=== PATIENT | female | born 1940 | race Caucasian/White ===

== ENCOUNTER 2017-04-06 14:03 | Inpatient (IN) | payer MEDICARE, OTHER ==
[2017-04-06] MEDS ORDERED: Haloperidol Lactate 5 mg/mL 1mL Vial IM ONE (14:12)
[2017-04-06] MEDS ORDERED: Haloperidol Lactate 5 mg/mL 1mL Vial IVP ONE (14:12)
[2017-04-06] MEDS ORDERED: Haloperidol Lactate 5 mg/mL 1mL Vial ONE (14:13)
--- NOTE | 2017-04-06 14:23 | ED Physician Chart ---
ED Chief Complaint/HPI - Patient Information Date Seen:: 04/06/17 Time Seen:: 14:00 Chief Complaint:: agitation History of Present Illness:: onset x 2 days of agitation and aggressive behavior; no report of SIs, H/As, neck pain, C/P, SOB, Abd Pain, A/N/V/D/C, fever, chills, or urinary s/s Historian:: Patient, EMS Review:: Nurse's Note Reviewed, EMS run form Reviewed ED Review of Systems - Review of Systems General/Constitutional: No fever, No chills, No weight loss, No weakness, No diaphoresis, No edema, No loss of appetite Skin: No skin lesions, No rash, No bruising Head: No headache, No light-headedness Eyes: No loss of vision, No pain, No diplopia ENT: No earache, No nasal drainage, No sore throat, No tinnitus Neck: No neck pain, No swelling, No thyromegaly, No stiffness, No mass noted Cardio Vascular: No chest pain, No palpitations, No PND, No orthopnea, No edema Pulmonary: No SOB, No cough, No sputum, No wheezing GI: No nausea, No vomiting, No diarrhea, No pain, No melena, No hematochezia, No constipation, No hematemesis G/U: No dysuria, No frequency, No hematuria Musculoskeletal: No bone or joint pain, No back pain, No muscle pain Endocrine: No polyuria, No polydipsia Psychiatric: Prior psych history, Depression, Anxiety, No suicidal ideation, No homicidal ideation, No auditory hallucination, No visual hallucination Hematopoietic: No bruising, No lymphadenopathy Allergic/Immuno: No urticaria, No angioedema Neurological: No syncope, No focal symptoms, No weakness, No paresthesia, No headache, No seizure, No dizziness, No confusion, No vertigo ED Past Medical History - Past Medical History Obtainable: Yes Past Medical History: HTN, Dementia Family History: HTN Social History: Non Smoker, No Alcohol, No Drug Use, Single, Care Facility Surgical History: None Psychiatricy History: Depression, Bipolar, Dementia Medication: Reviewed Family Medical History - Family Member Mother History Unknown: Yes ED Physical Exam - Physical Examination General/Constitutional: Awake, Well-developed, well-nourished, Alert, No distress, GCS 15, Non-toxic appearing, Ambulatory Head: Atraumatic Eyes: Lids, conjuctiva normal, PERRL, EOMI Skin: Nl inspection, No rash, No skin lesions, No ecchymosis, Well hydrated, No lymphadenopathy ENMT: External ears, nose nl, TM canals nl, Nasal exam nl, Lips, teeth, gums nl , Oropharynx nl, Tonsils nl Neck: Nontender, Full ROM w/o pain, No JVD, No nuchal rigidity, No bruit, No mass, No stridor Respiratory: Nl effort/Exclusion, Clear to Auscultation, No Wheeze/Rhonchi/Rales Cardio Vascular: RRR, No murmur, gallop, rubs, NL S1 S2, Carotid/Femoral/Distal pulses equal bilaterally GI: No tenderness/rebounding/guarding, No organomegaly, No hernia, Normal BS's, Nondistended, No mass/bruits, No McBurney tenderness : No CVA tenderness Extremities: No tenderness or effusion, Full ROM, normal strength in all extremities, No edema, Normal digits & nails Neuro/Psych: Alert/oriented, DTR's symmetric, Normal sensory exam, Normal motor strength, Judgement/insight normal, Mood normal, Normal gait, No focal deficits Other Neuro/Psych comments:: + Psychomotor Agitation Misc: Normal back, No paraspinal tenderness ED Labs/Radiology/EKG Results - EKG Interpretations EKG Time:: 14:30 Rate & Rhythm: 121; ST Comments:: non-specific st-t changes ED Septic Shock - . Is Septic Shock (SBP<90, OR Lactate>4 mmol\L) present?: No ED Reassessment (Disposition) - Reassessment Reassessment Condition:: Improved - Diagnosis Diagnosis:: Psychomotor Agitation; Bipolar Disorder; Manic-Depression - Aftercare/Follow up Instructions Aftercare/Follow-Up Instructions:: Counseled pt regarding lab results/diagnosis & need follow up, Counseled pt & family regarding lab results/diagnosis & need follow up - Patient Disposition Discharge/Transfer:: Acute Care w/in this hosp Admitted to:: [facility] Condition at Disposition:: Stable, Improved ED Discharge Plan - Patient Disposition Admit/Discharge/Transfer: Acute Care w/in this hosp Condition at Disposition: Unchanged
[2017-04-06 14:43] LABS: % BASOPHILS 4.5 % (0.0-2.0); % EOSINOPHILS 2.4 % (0.0-5.0); % LYMPHOCYTES 16.7 % (20.0-50.0); % MONOCYTES 10.8 % (2.0-10.0); % NEUTROPHILS 65.6 % (40.0-80.0); HEMATOCRIT 43.7 % (41.0-60); HEMOGLOBIN 14.6 gm/dL (12-16); MEAN CELL VOLUME 93.8 fl (81-100); MEAN CORPUSCULAR HEMOGLOBIN 31.3 pg (27.0-31.0); MEAN CORPUSCULAR HGB CONC 33.4 pg (28.0-36.0); MEAN PLATELET VOLUME 7.5 fl; PLATELET COUNT 147 Th/cmm (150-400); RED BLOOD COUNT 4.66 Mil/cmm (3.80-5.20); RED CELL DISTRIBUTION WIDTH 14.1 % (11.5-20.0)
[2017-04-06 14:53] LABS: ACETAMINOPHEN < 10.0 ug/mL (10.0-30.0); ALB/GLOB RATIO 1.5 (1.0-1.8); ALKALINE PHOSPHATASE 123 U/L (34-104); ANION GAP 9.8 (7.0-16.0); BILIRUBIN,TOTAL 1.4 mg/dL (0.3-1.0); BUN - UREA NITROGEN 21 mg/dL (7-25); CARBON DIOXIDE 27.9 mEq/L (21.0-31.0); CHLORIDE 109 mEq/L (98-107); CHOLESTEROL 167 mg/dL (<200); GLUCOSE 82 mg/dL (70-105); POTASSIUM SERUM 3.7 mEq/L (3.5-5.1); SGOT 33 U/L (13-39); SGPT/ALT 29 U/L (7-52); SODIUM SERUM 143 mEq/L (136-145); TRIGLYCERIDES 98 mg/dL (<150)
[2017-04-06 18:31] VITALS: BP 108/54
[2017-04-07] MEDS: Aspirin 81mg Chewable Tab PO SCH (09:15)
[2017-04-08] MEDS: Aspirin 81mg Chewable Tab PO SCH (09:22)
--- NOTE | 2017-04-08 10:04 | Psychosocial Evaluation ---
DATE OF SERVICE: 04/06/2017 IDENTIFYING INFORMATION: The patient's age 77. SEX: Female. PHYSICIAN: Shana Husain M.D. CHIEF COMPLAINT: Agitation and confusion. HISTORY OF PRESENT ILLNESS: The patient was admitted to the hospital because of increased agitation and irritability as well as confusion. The patient also has been actively hallucinating and restless and have been talking to herself. The patient also has been aggressive with the staff and has not been able to follow any of staff directions. Chart reviewed and patient interviewed. The patient has been extremely irritable and angry and agitated. She also has been not able to answer any of my questions because of her anger and patient seems to be talking to herself and when I will start to get her attention, she was getting more agitated and more angry. PAST PSYCHIATRIC HISTORY: The patient seems to have history of psychosis. She also seems to have history of dementia. PAST MEDICAL HISTORY: As per Dr. Quezada. SOCIAL HISTORY: The patient lives in [facility]. No known alcohol or drug use. ALLERGIES: No known allergies. MENTAL STATUS EXAMINATION: The patient appears slightly older than her stated age. Disheveled. Angry. Restless. In irritable mood. Thought processes are disorganized. The patient did not answer questions regarding hallucinations or delusions, but seems to be preoccupied. The patient is alert, but seems to be disoriented to time, place, person, and situation. Impaired immediate recent and remote memories and the patient did not answer questions even regarding her date. Poor insight and poor judgment. ASSESSMENT: PRIMARY DIAGNOSIS: Unspecified psychosis. SECONDARY DIAGNOSIS: Dementia, moderate to severe, with psychotic features. TREATMENT PLAN: We will monitor the patient's behavior and condition closely. Also, we will evaluate the use of psychotropic medications and adjusting the dose. Also, work on behavioral modification. ESTIMATED LENGTH OF STAY: 7-10 days. THE PATIENT'S STRENGTHS AND WEAKNESSES: The patient's strength is not clear at that time. Weakness is ineffective, coping, and poor impulse control. AFTER DISCHARGE PLAN: Outpatient treatment and followup. We will continue as an outpatient. CRITERIA FOR DISCHARGE: Stabilization of her medications and establish outpatient treatment plans. [facility]# [id number]
--- NOTE | 2017-04-08 16:37 | History & Physical ---
ADMIT DATE: 04/06/[address] Quezada. CHIEF COMPLAINT: Agitation. HISTORY OF PRESENT ILLNESS: This is a 77-year-old female who is a [place] [facility] resident, who is brought here to [facility] for 2-day onset of agitation and aggressive behavior towards the staff. For this reason, the patient is now admitted to the Geropsych Unit. PAST MEDICAL HISTORY: Hypertension, dementia. PAST SURGICAL HISTORY: Unknown. FAMILY HISTORY: Noncontributory. SOCIAL HISTORY: The patient is a [place] [facility] resident, requiring 24-hour nursing care. FAMILY HISTORY: Noncontributory. REVIEW OF SYSTEMS: Unable to obtain. The patient is agitated. PHYSICAL EXAMINATION: GENERAL: This is an elderly female, awake, alert, confused, and agitated, in no apparent distress. VITAL SIGNS: Temperature 97.2, heart rate 84, blood pressure 129/65, respirations 18, O2 98%. HEENT: Head: Normocephalic, atraumatic. NECK: Supple. No mass. LUNGS: Clear bilaterally. HEART: Regular rhythm. ABDOMEN: Soft, nontender. LABORATORY DATA: WBC 6.0, H and H 14.6, 43.7, platelet 147. Sodium 142, potassium 3.7, chloride 109, BUN 21, creatinine 1.0. ASSESSMENT: 1. Agitation. 2. Hypertension. 3. Dementia. PLAN: The patient to be admitted to the Geropsych Unit. The patient to continue current medications from [place] [facility]. We will continue to follow this patient. [facility]# [id number]
--- NOTE | 2017-04-09 01:54 | Progress Notes ---
DATE: 04/08/[address] Husain. Case was discussed with staff of the patient, reviewed records. This is a 77-year-old female, who was admitted on 04/06/2017. She has been agitated, irritable, confused, actively hallucinating, restless, and talking to herself. The patient was a poor historian. I was unable to talk to her. She was yelling and screaming; the staff, however, reports she just started a few minutes prior. She has been on Depakote 125 mg every 4 hours and Aricept 5 mg at bedtime, it is too early to make further adjustment. Also, she is on Seroquel 50 mg at bedtime. We will continue outpatient group therapy, milieu therapy, and adjust medication as needed. JOB# [id number]
[2017-04-09] MEDS: Aspirin 81mg Chewable Tab PO SCH (08:27)
[2017-04-09] MEDS ORDERED: Magnesium Hydroxide (MOM) 30 mL UDC PO PRN (18:31)
--- NOTE | 2017-04-10 03:15 | Progress Notes ---
DATE: 04/09/[address] Husain. Case was discussed with staff of the patient, reviewed records. The patient continues to be unpredictable, impulsive, talking to herself, unable to carry on a conversation, has been aggressive, extremely irritable, angry, agitated with a history of psychosis and dementia. The patient has been compliant with the medication with no side effects, no sedation, no nausea, no extrapyramidal symptoms and she is on Seroquel 50 mg at bedtime and Aricept was started by Dr. Husain at 5 mg at bedtime and Depakote ____ every 8 hours. I will continue patient in group therapy, milieu therapy, adjust the medications as needed. JOB# [id number]
--- NOTE | 2017-04-10 07:45 | Progress Notes ---
DATE: 04/09/2017 SUBJECTIVE: The patient was seen in her room, lying on the bed. The patient still has episodes of agitation and aggressive behavior, otherwise the patient appears to be comfortable in no acute distress. OBJECTIVE: VITAL SIGNS: Temperature 97.9, heart rate of 86, blood pressure 130/66, respirations 20, 98% on room air. HEENT: Head is atraumatic and normocephalic. Eyes, bilateral conjunctivae are clear. Bilateral pupils are equally round and reactive. NECK: Supple. No JVD. CARDIOVASCULAR: S1 and S2, without murmur. PULMONARY: Clear to auscultation. GASTROINTESTINAL: Soft and nontender without guarding. Positive bowel sounds. MUSCULOSKELETAL: No clubbing, no cyanosis noted. ASSESSMENT: 1. Psychosis. 2. Dementia. 3. Hypertension. 4. Osteoarthritis. PLAN: We will keep the patient in inpatient Psychiatric Unit. We will follow up with a psychiatrist to monitor the patient's condition and behavior. Treatment plans were discussed with the patient's nurse. Treatment plans were discussed with Dr. Quezada. JOB# [id number]
[2017-04-10] MEDS: Aspirin 81mg Chewable Tab PO SCH (09:31)
--- NOTE | 2017-04-10 10:39 | General Progress Note ---
Subjective - Review of Systems Events since last encounter: patient still irritable confused denies pain Objective - Results Result Diagrams: 04/06/17 14:29 04/06/17 14:29 Recent Labs: Laboratory Last Values WBC 6.0 Th/cmm (4.8-10.8) 04/06/17 14:29 RBC 4.66 Mil/cmm (3.80-5.20) 04/06/17 14:29 Hgb 14.6 gm/dL (12-16) 04/06/17 14:29 Hct 43.7 % (41.0-60) 04/06/17 14:29 MCV 93.8 fl (81-100) 04/06/17 14:29 MCH 31.3 pg (27.0-31.0) H 04/06/17 14:29 MCHC Differential 33.4 pg (28.0-36.0) 04/06/17 14:29 RDW 14.1 % (11.5-20.0) 04/06/17 14:29 Plt Count 147 Th/cmm (150-400) L 04/06/17 14:29 MPV 7.5 fl 04/06/17 14:29 Neutrophils % 65.6 % (40.0-80.0) 04/06/17 14: Lymphocytes % 16.7 % (20.0-50.0) L 04/06/17 14: Monocytes % 10.8 % (2.0-10.0) H 04/06/17 14:29 Eosinophils % 2.4 % (0.0-5.0) 04/06/17 14: Basophils % 4.5 % (0.0-2.0) H 04/06/17 14:29 Sodium 143 mEq/L (136-145) 04/06/17 14:29 Potassium 3.7 mEq/L (3.5-5.1) 04/06/17 14:29 Chloride 109 mEq/L (98-107) H 04/06/17 14:29 Carbon Dioxide 27.9 mEq/L (21.0-31.0) 04/06/17 14:29 Anion Gap 9.8 (7.0-16.0) 04/06/17 14:29 BUN 21 mg/dL (7-25) 04/06/17 14:29 Creatinine 1.0 mg/dL (0.6-1.2) 04/06/17 14:29 Est GFR ( Amer) TNP 04/06/17 14:29 Est GFR (Non-Af Amer) TNP 04/06/17 14:29 BUN/Creatinine Ratio 21.0 04/06/17 14:29 Glucose 82 mg/dL (70-105) 04/06/17 14:29 Hemoglobin A1c % 5.6 % (4.0-6.0) 04/06/17 14:29 Calcium 9.0 mg/dL (8.6-10.3) 04/06/17 14:29 Total Bilirubin 1.4 mg/dL (0.3-1.0) H 04/06/17 14:29 AST 33 U/L (13-39) 04/06/17 14:29 ALT 29 U/L (7-52) 04/06/17 14:29 Alkaline Phosphatase 123 U/L (34-104) H 04/06/17 14:29 Total Protein 5.7 gm/dL (6.0-8.3) L 04/06/17 14:29 Albumin 3.4 gm/dL (3.7-5.3) L 04/06/17 14:29 Globulin 2.3 gm/dL 04/06/17 14:29 Albumin/Globulin Ratio 1.5 (1.0-1.8) 04/06/17 14:29 Triglycerides 98 mg/dL (<150) 04/06/17 14:29 Cholesterol 167 mg/dL (<200) 04/06/17 14:29 LDL Cholesterol Direct 123 mg/dL (75-193) 04/06/17 14:29 HDL Cholesterol 40 mg/dL (23-92) 04/06/17 14:29 TSH 2.46 uIU/ml (0.34-5.60) 04/06/17 14:29 Salicylates < 25.0 mg/L (30.0-100.0) L 04/06/17 14:29 Acetaminophen < 10.0 ug/mL (10.0-30.0) L 04/06/17 14:29 Ethyl Alcohol < 10 mg/dL (0-10) 04/06/17 14:29 RPR NONREACTIVE (NONREACTIVE) 04/06/17 14:29 - Physical Exam Vitals and I&O: Vital Signs Temp 98 F 04/09/17 20:22 Pulse 98 04/10/17 09:32 Resp 18 04/09/17 20:22 BP 102/45 04/10/17 09:32 Pulse Ox 98 04/09/17 20:22 Intake & Output 04/09/17 04/10/17 04/10/17 18:59 06:59 18:59 Intake Total 750 360 Balance 750 360 Intake: Oral 750 360 Other: # Voids 3 1 # Bowel Movements 1 Active Medications: Current Medications Aspirin (Aspirin Chewable) 81 mg PO DAILY [facility] Stop: 06/06/17 08:59 Last Admin: 04/10/17 09:31 Dose: 81 mg Divalproex Sodium (Depakote Sprinkle) 125 mg PO Q8HR [facility] PRN Reason: Protocol Stop: 06/06/17 08:59 Last Admin: 04/10/17 05:00 Dose: 125 mg Donepezil HCl (Aricept) 5 mg PO HS [facility] Stop: 06/06/17 20:59 Last Admin: 04/09/17 20:43 Dose: 5 mg Furosemide (Lasix) 40 mg PO DAILY [facility] Stop: 06/06/17 08:59 Last Admin: 04/10/17 09:30 Dose: 40 mg Lisinopril (Zestril) 20 mg PO DAILY [facility] Stop: 06/06/17 08:59 Last Admin: 04/10/17 09:32 Dose: Not Given Lorazepam (Ativan) 1 mg IM Q4HR PRN; Protocol PRN Reason: Agitation Stop: 06/05/17 14:10 Last Admin: 04/06/17 14:20 Dose: 1 mg Lorazepam (Ativan) 0.5 mg PO Q4HR PRN; Protocol PRN Reason: Anxiety Stop: 06/05/17 18:20 Last Admin: 04/10/17 09:31 Dose: 0.5 mg Magnesium Hydroxide (Milk Of Magnesia) 30 ml PO DAILY PRN PRN Reason: Constipation Stop: 06/08/17 18:30 Metoprolol Tartrate (Lopressor) 25 mg PO DAILY [facility] Stop: 06/06/17 08:59 Last Admin: 04/10/17 09:31 Dose: 25 mg Quetiapine Fumarate (Seroquel) 50 mg PO [facility] PRN Reason: Protocol Stop: 06/05/17 20:59 Last Admin: 04/09/17 20:43 Dose: 50 mg
--- NOTE | 2017-04-10 23:52 | Progress Notes ---
DATE: 04/10/[address] Husain. Case was discussed with staff of the patient, reviewed records, also have a discussion yesterday with her who reports that she is in the facility where it is not far away from his home and she is on the 7-day bed hold and he likes to go see her every day and he would like not to lose that bed, so he does not have to drive very long because he likes to see her daily. The patient continues to be confused, unpredictable and impulsive. She continues to have poor insight. Unable to make safe plan for self-care. She is compliant with the medication with no side effects, no sedation, no nausea, no extrapyramidal symptoms. We will continue outpatient group therapy, milieu therapy, adjust medications. [facility]# [id number]
[2017-04-11] MEDS: Aspirin 81mg Chewable Tab PO SCH (09:01)
--- NOTE | 2017-04-11 21:23 | Progress Notes ---
DATE: 04/11/2017 Case was discussed with staff of the patient, reviewed records. Covering for Dr. Husain. The patient continues to be unable to carry a reasonable conversation, confused, unable to obtain or make safe plan for self-care, easily agitated. She is sleeping better, eating better, has to be prompted. No side effects with the medication, no sedation, no nausea, no extrapyramidal symptoms. I will be checking her Depakote level. Her has been very much involved, he call every day, sees her every day. He wanted to stay at the same place, does not want to lose her place because she does not have to travel long distance. Also, he want be able to see her daily. We will continue outpatient group therapy, milieu therapy, adjust the medications as needed. JOB# [id number]
--- NOTE | 2017-04-12 09:05 | General Progress Note ---
Subjective - Review of Systems Events since last encounter: patient confused no acute distress Objective - Results Result Diagrams: 04/06/17 14:29 04/06/17 14:29 Recent Labs: Laboratory Last Values WBC 6.0 Th/cmm (4.8-10.8) 04/06/17 14:29 RBC 4.66 Mil/cmm (3.80-5.20) 04/06/17 14:29 Hgb 14.6 gm/dL (12-16) 04/06/17 14:29 Hct 43.7 % (41.0-60) 04/06/17 14:29 MCV 93.8 fl (81-100) 04/06/17 14:29 MCH 31.3 pg (27.0-31.0) H 04/06/17 14:29 MCHC Differential 33.4 pg (28.0-36.0) 04/06/17 14:29 RDW 14.1 % (11.5-20.0) 04/06/17 14:29 Plt Count 147 Th/cmm (150-400) L 04/06/17 14:29 MPV 7.5 fl 04/06/17 14:29 Neutrophils % 65.6 % (40.0-80.0) 04/06/17 14: Lymphocytes % 16.7 % (20.0-50.0) L 04/06/17 14: Monocytes % 10.8 % (2.0-10.0) H 04/06/17 14:29 Eosinophils % 2.4 % (0.0-5.0) 04/06/17 14: Basophils % 4.5 % (0.0-2.0) H 04/06/17 14:29 Sodium 143 mEq/L (136-145) 04/06/17 14:29 Potassium 3.7 mEq/L (3.5-5.1) 04/06/17 14:29 Chloride 109 mEq/L (98-107) H 04/06/17 14:29 Carbon Dioxide 27.9 mEq/L (21.0-31.0) 04/06/17 14:29 Anion Gap 9.8 (7.0-16.0) 04/06/17 14:29 BUN 21 mg/dL (7-25) 04/06/17 14:29 Creatinine 1.0 mg/dL (0.6-1.2) 04/06/17 14:29 Est GFR ( Amer) TNP 04/06/17 14:29 Est GFR (Non-Af Amer) TNP 04/06/17 14:29 BUN/Creatinine Ratio 21.0 04/06/17 14:29 Glucose 82 mg/dL (70-105) 04/06/17 14:29 Hemoglobin A1c % 5.6 % (4.0-6.0) 04/06/17 14:29 Calcium 9.0 mg/dL (8.6-10.3) 04/06/17 14:29 Total Bilirubin 1.4 mg/dL (0.3-1.0) H 04/06/17 14:29 AST 33 U/L (13-39) 04/06/17 14:29 ALT 29 U/L (7-52) 04/06/17 14:29 Alkaline Phosphatase 123 U/L (34-104) H 04/06/17 14:29 Total Protein 5.7 gm/dL (6.0-8.3) L 04/06/17 14:29 Albumin 3.4 gm/dL (3.7-5.3) L 04/06/17 14:29 Globulin 2.3 gm/dL 04/06/17 14:29 Albumin/Globulin Ratio 1.5 (1.0-1.8) 04/06/17 14:29 Triglycerides 98 mg/dL (<150) 04/06/17 14:29 Cholesterol 167 mg/dL (<200) 04/06/17 14:29 LDL Cholesterol Direct 123 mg/dL (75-193) 04/06/17 14:29 HDL Cholesterol 40 mg/dL (23-92) 04/06/17 14:29 TSH 2.46 uIU/ml (0.34-5.60) 04/06/17 14:29 Salicylates < 25.0 mg/L (30.0-100.0) L 04/06/17 14:29 Acetaminophen < 10.0 ug/mL (10.0-30.0) L 04/06/17 14:29 Valproic Acid 45.6 ug/mL (50.0-100.0) L 04/11/17 10:40 Ethyl Alcohol < 10 mg/dL (0-10) 04/06/17 14:29 RPR NONREACTIVE (NONREACTIVE) 04/06/17 14:29 - Physical Exam Vitals and I&O: Vital Signs Temp 98.4 F 04/12/17 06:35 Pulse 108 04/12/17 06:35 Resp 19 04/12/17 06:35 BP 117/68 04/12/17 06:35 Pulse Ox 98 04/12/17 06:35 Intake & Output 04/11/17 04/12/17 04/12/17 18:59 06:59 18:59 Intake Total 950 240 Balance 950 240 Intake: Oral 950 240 Other: # Voids 4 3 # Bowel Movements 1 0 Active Medications: Current Medications Aspirin (Aspirin Chewable) 81 mg PO DAILY [facility] Stop: 06/06/17 08:59 Last Admin: 04/11/17 09:01 Dose: 81 mg Divalproex Sodium (Depakote Sprinkle) 125 mg PO Q8HR [facility] PRN Reason: Protocol Stop: 06/06/17 08:59 Last Admin: 04/11/17 20:28 Dose: 125 mg Donepezil HCl (Aricept) 5 mg PO HS [facility] Stop: 06/06/17 20:59 Last Admin: 04/11/17 20:29 Dose: 5 mg Furosemide (Lasix) 40 mg PO DAILY [facility] Stop: 06/06/17 08:59 Last Admin: 04/11/17 16:10 Dose: Not Given Lisinopril (Zestril) 20 mg PO DAILY [facility] Stop: 06/06/17 08:59 Last Admin: 04/11/17 09:20 Dose: Not Given Lorazepam (Ativan) 1 mg IM Q4HR PRN; Protocol PRN Reason: Agitation Stop: 06/05/17 14:10 Last Admin: 04/06/17 14:20 Dose: 1 mg Lorazepam (Ativan) 0.5 mg PO Q4HR PRN; Protocol PRN Reason: Anxiety Stop: 06/05/17 18:20 Last Admin: 04/11/17 15:35 Dose: 0.5 mg Magnesium Hydroxide (Milk Of Magnesia) 30 ml PO DAILY PRN PRN Reason: Constipation Stop: 06/08/17 18:30 Last Admin: 04/10/17 14:28 Dose: 30 ml Metoprolol Tartrate (Lopressor) 25 mg PO DAILY [facility] Stop: 06/06/17 08:59 Last Admin: 04/11/17 09:20 Dose: Not Given Quetiapine Fumarate (Seroquel) 50 mg PO HS [facility] PRN Reason: Protocol Stop: 06/05/17 20:59 Last Admin: 04/11/17 20:29 Dose: 50 mg Nutritional Asmnt/Malnutr-PDOC - Dietary Evaluation Malnutrition Findings (Please click <Entered> for more info): Nutritional Asmnt/Malnutrition Start: 04/11/17 16: 46 Text: Status: Complete Freq: Document 04/11/17 16:46 JENIFFERMANNY (Rec: 04/11/17 17:00 LCDANISHAG [email or web address]) Nutritional Asmnt/Malnutrition Patient General Information Nutritional Screening Moderate Risk Diagnosis agitation, psychosis Pertinent Medical Hx/Surgical Hx HTN, dementia Subjective Information Pt seen in activity room, confused, not responding questions. Spoke to nurse, pt eats well with feeding, consumed 100% of breakfast this morning, no nutrition concer at this time. Per notes , PO intake 50-100% in first 2 days, 100% in recent 2 days. Not approriate to perform physical exam at this time. Pt appeared skinny. Current Diet Order/ Nutrition Support Regular Pertinent Medications lasix, seroquel Pertinent Labs 04/06 Cl 109H, Alb 3.4L Nutritional Hx/Data Height 1.55 m Height (Calculated Centimeters) 154.9 Current Weight (lbs) 54.431 kg Weight (Calculated Kilograms) 54.4 Weight (Calculated Grams) 74784.1 [place]on Body Weight 105 % [place]on Body Weight 114 Body Mass Index (BMI) 22.6 Weight Status Approriate GI Symptoms GI Symptoms None Last BM 04/10 Difficult in: None Usual diet at home not able to obtain Skin Integrity/Comment: Doron score 18 skin dryness Estimated Nutritional Goals BEE in Kcals: Using Current wt Calories/Kcals/Kg 25-30 Kcals Calculated 1778-5044 Protein: Using Current wt Protein g/k Protein Calculated 55 Fluid: ml [id number] Nutritional Problem No current Nutrition Prob Problem N/A Etiology N/A Signs/Symptoms: N/A Malnutrition Alert Protein-Calorie Malnutrition N/A Is there a minimum of two criteria No selected? Query Text:Check all the applicable criteria. A minimum of two criteria are recommended for diagnosis of either severe or non-severe malnutrition. Intervention/Recommendation Comments 1. continue with current diet as ordered 2. Monitor PO intake, wt weekly, skin, labs 3. F/U as low risk in 7 days 04/18 Expected Outcomes/Goals Expected Outcomes/Goals 1. PO intake continue to > 75% to meet nutritional needs 2. wt stability 3. labs to approach WNL 4. Skin to remain intact
[2017-04-12] MEDS: Aspirin 81mg Chewable Tab PO SCH (09:13)
--- NOTE | 2017-04-12 12:42 | Internal Medicine Prog Note ---
Internal Medicine Subjective - Subjective Service Date: 04/12/17 Patient seen and examined:: with staff Patient is:: awake Per staff patient has:: tolerating meds Internal Medicine Objective - Results Result Diagrams: 04/06/17 14:29 04/06/17 14:29 Recent Labs: Laboratory Last Values WBC 6.0 Th/cmm (4.8-10.8) 04/06/17 14:29 RBC 4.66 Mil/cmm (3.80-5.20) 04/06/17 14:29 Hgb 14.6 gm/dL (12-16) 04/06/17 14:29 Hct 43.7 % (41.0-60) 04/06/17 14:29 MCV 93.8 fl (81-100) 04/06/17 14:29 MCH 31.3 pg (27.0-31.0) H 04/06/17 14:29 MCHC Differential 33.4 pg (28.0-36.0) 04/06/17 14:29 RDW 14.1 % (11.5-20.0) 04/06/17 14:29 Plt Count 147 Th/cmm (150-400) L 04/06/17 14:29 MPV 7.5 fl 04/06/17 14:29 Neutrophils % 65.6 % (40.0-80.0) 04/06/17 14:29 Lymphocytes % 16.7 % (20.0-50.0) L 04/06/17 14: Monocytes % 10.8 % (2.0-10.0) H 04/06/17 14:29 Eosinophils % 2.4 % (0.0-5.0) 04/06/17 14:29 Basophils % 4.5 % (0.0-2.0) H 04/06/17 14:29 Sodium 143 mEq/L (136-145) 04/06/17 14:29 Potassium 3.7 mEq/L (3.5-5.1) 04/06/17 14:29 Chloride 109 mEq/L (98-107) H 04/06/17 14:29 Carbon Dioxide 27.9 mEq/L (21.0-31.0) 04/06/17 14:29 Anion Gap 9.8 (7.0-16.0) 04/06/17 14:29 BUN 21 mg/dL (7-25) 04/06/17 14:29 Creatinine 1.0 mg/dL (0.6-1.2) 04/06/17 14:29 Est GFR ( Amer) TNP 04/06/17 14:29 Est GFR (Non-Af Amer) TNP 04/06/17 14:29 BUN/Creatinine Ratio 21.0 04/06/17 14:29 Glucose 82 mg/dL (70-105) 04/06/17 14:29 Hemoglobin A1c % 5.6 % (4.0-6.0) 04/06/17 14:29 Calcium 9.0 mg/dL (8.6-10.3) 04/06/17 14:29 Total Bilirubin 1.4 mg/dL (0.3-1.0) H 04/06/17 14:29 AST 33 U/L (13-39) 04/06/17 14:29 ALT 29 U/L (7-52) 04/06/17 14:29 Alkaline Phosphatase 123 U/L (34-104) H 04/06/17 14:29 Total Protein 5.7 gm/dL (6.0-8.3) L 04/06/17 14:29 Albumin 3.4 gm/dL (3.7-5.3) L 04/06/17 14:29 Globulin 2.3 gm/dL 04/06/17 14:29 Albumin/Globulin Ratio 1.5 (1.0-1.8) 04/06/17 14:29 Triglycerides 98 mg/dL (<150) 04/06/17 14:29 Cholesterol 167 mg/dL (<200) 04/06/17 14:29 LDL Cholesterol Direct 123 mg/dL (75-193) 04/06/17 14:29 HDL Cholesterol 40 mg/dL (23-92) 04/06/17 14:29 TSH 2.46 uIU/ml (0.34-5.60) 04/06/17 14:29 Salicylates < 25.0 mg/L (30.0-100.0) L 04/06/17 14:29 Acetaminophen < 10.0 ug/mL (10.0-30.0) L 04/06/17 14:29 Valproic Acid 45.6 ug/mL (50.0-100.0) L 04/11/17 10:40 Ethyl Alcohol < 10 mg/dL (0-10) 04/06/17 14:29 RPR NONREACTIVE (NONREACTIVE) 04/06/17 14:29 - Physical Exam Vitals and I&O: Vital Signs Temp 98.4 F 04/12/17 06:35 Pulse 108 04/12/17 09:12 Resp 19 04/12/17 06:35 BP 117/68 04/12/17 09:12 Pulse Ox 98 04/12/17 06:35 Intake & Output 04/11/17 04/12/17 04/12/17 18:59 06:59 18:59 Intake Total 950 240 Balance 950 240 Intake: Oral 950 240 Other: # Voids 4 3 # Bowel Movements 1 0 Active Medications: Current Medications Aspirin (Aspirin Chewable) 81 mg PO DAILY RACH[facility] Stop: 06/06/17 08:59 Last Admin: 04/12/17 09:13 Dose: 81 mg Divalproex Sodium (Depakote Sprinkle) 125 mg PO Q8HR RACHID PRN Reason: Protocol Stop: 06/06/17 08:59 Last Admin: 04/11/17 20:28 Dose: 125 mg Donepezil HCl (Aricept) 5 mg PO HS [facility] Stop: 06/06/17 20:59 Last Admin: 04/11/17 20:29 Dose: 5 mg Furosemide (Lasix) 40 mg PO DAILY [facility] Stop: 06/06/17 08:59 Last Admin: 04/12/17 09:12 Dose: 40 mg Lisinopril (Zestril) 20 mg PO DAILY [facility] Stop: 06/06/17 08:59 Last Admin: 04/12/17 09:12 Dose: 20 mg Lorazepam (Ativan) 1 mg IM Q4HR PRN; Protocol PRN Reason: Agitation Stop: 06/05/17 14:10 Last Admin: 04/06/17 14:20 Dose: 1 mg Lorazepam (Ativan) 0.5 mg PO Q4HR PRN; Protocol PRN Reason: Anxiety Stop: 06/05/17 18:20 Last Admin: 04/12/17 11:32 Dose: 0.5 mg Magnesium Hydroxide (Milk Of Magnesia) 30 ml PO DAILY PRN PRN Reason: Constipation Stop: 06/08/17 18:30 Last Admin: 04/10/17 14:28 Dose: 30 ml Metoprolol Tartrate (Lopressor) 25 mg PO DAILY [facility] Stop: 06/06/17 08:59 Last Admin: 04/12/17 09:12 Dose: 25 mg Quetiapine Fumarate (Seroquel) 50 mg PO HS RACHID PRN Reason: Protocol Stop: 06/05/17 20:59 Last Admin: 04/11/17 20:29 Dose: 50 mg General: alert HEENT: NC/AT, PERRLA Neck: Supple Lungs: CTAB Cardiovascular: RRR, Normal S1, Normal S2, without murmur Abdomen: soft, non-tender, non-distended Neurological: no change Internal Medicine Assmt/Plan - Assessment Assessment: psychosis dementia htn - Plan Plan: fall precautions continue current treatment Nutritional Asmnt/Malnutr-PDOC - Dietary Evaluation Malnutrition Findings (Please click <Entered> for more info): Nutritional Asmnt/Malnutrition Start: 04/11/17 16: 46 Text: Status: Complete Freq: Document 04/11/17 16:46 DANISHA (Rec: 04/11/17 17:00 DANISHA [email or web address]) Nutritional Asmnt/Malnutrition Patient General Information Nutritional Screening Moderate Risk Diagnosis agitation, psychosis Pertinent Medical Hx/Surgical Hx HTN, dementia Subjective Information Pt seen in activity room, confused, not responding questions. Spoke to nurse, pt eats well with feeding, consumed 100% of breakfast this morning, no nutrition concer at this time. Per notes , PO intake 50-100% in first 2 days, 100% in recent 2 days. Not approriate to perform physical exam at this time. Pt appeared skinny. Current Diet Order/ Nutrition Support Regular Pertinent Medications lasix, seroquel Pertinent Labs 04/06 Cl 109H, Alb 3.4L Nutritional Hx/Data Height 5 ft 1 in Height (Calculated Centimeters) 154.9 Current Weight (lbs) 120 lb Weight (Calculated Kilograms) 54.4 Weight (Calculated Grams) 93789.1 [place] Body Weight 105 % [place] Body Weight 114 Body Mass Index (BMI) 22.6 Weight Status Approriate GI Symptoms GI Symptoms None Last BM 04/10 Difficult in: None Usual diet at home not able to obtain Skin Integrity/Comment: Doron score 18 skin dryness Estimated Nutritional Goals BEE in Kcals: Using Current wt Calories/Kcals/Kg 25-30 Kcals Calculated 6477-0920 Protein: Using Current wt Protein g/k Protein Calculated 55 Fluid: ml 0037-9749 Nutritional Problem No current Nutrition Prob Problem N/A Etiology N/A Signs/Symptoms: N/A Malnutrition Alert Protein-Calorie Malnutrition N/A Is there a minimum of two criteria No selected? Query Text:Check all the applicable criteria. A minimum of two criteria are recommended for diagnosis of either severe or non-severe malnutrition. Intervention/Recommendation Comments 1. continue with current diet as ordered 2. Monitor PO intake, wt weekly, skin, labs 3. F/U as low risk in 7 days 04/18 Expected Outcomes/Goals Expected Outcomes/Goals 1. PO intake continue to > 75% to meet nutritional needs 2. wt stability 3. labs to approach WNL 4. Skin to remain intact
--- NOTE | 2017-04-12 22:46 | Progress Notes ---
DATE: 04/12/[address] Husain. Case was discussed with staff of the patient, reviewed records. The patient had a Depakote level 45.6 which is within acceptable range. She is not taking it for seizure. Her MRSA is negative. Her hemoglobin A1c was normal. Her CBC shows low platelet counts and lower leukocytic count. However, the platelet count 147, which is close to the normal and she has high MCH. Her chemistry panel showed low total protein and albumin. High total bilirubin and high alkaline phosphatase. Rest within normal limits. Triglyceride within normal range. She is still having episodes of agitation, irritability, but in general, she is better. No side effects with the medication, no sedation, no nausea and also from the symptoms. We will continue outpatient group therapy, milieu therapy, adjust medications. JOB# [id number]
--- NOTE | 2017-04-13 08:55 | General Progress Note ---
Subjective - Review of Systems Events since last encounter: patient awake in no distress Objective - Results Result Diagrams: 04/06/17 14:29 04/06/17 14:29 Recent Labs: Laboratory Last Values WBC 6.0 Th/cmm (4.8-10.8) 04/06/17 14:29 RBC 4.66 Mil/cmm (3.80-5.20) 04/06/17 14:29 Hgb 14.6 gm/dL (12-16) 04/06/17 14:29 Hct 43.7 % (41.0-60) 04/06/17 14:29 MCV 93.8 fl (81-100) 04/06/17 14:29 MCH 31.3 pg (27.0-31.0) H 04/06/17 14:29 MCHC Differential 33.4 pg (28.0-36.0) 04/06/17 14:29 RDW 14.1 % (11.5-20.0) 04/06/17 14:29 Plt Count 147 Th/cmm (150-400) L 04/06/17 14:29 MPV 7.5 fl 04/06/17 14:29 Neutrophils % 65.6 % (40.0-80.0) 04/06/17 14: Lymphocytes % 16.7 % (20.0-50.0) L 04/06/17 14: Monocytes % 10.8 % (2.0-10.0) H 04/06/17 14:29 Eosinophils % 2.4 % (0.0-5.0) 04/06/17 14: Basophils % 4.5 % (0.0-2.0) H 04/06/17 14:29 Sodium 143 mEq/L (136-145) 04/06/17 14:29 Potassium 3.7 mEq/L (3.5-5.1) 04/06/17 14:29 Chloride 109 mEq/L (98-107) H 04/06/17 14:29 Carbon Dioxide 27.9 mEq/L (21.0-31.0) 04/06/17 14:29 Anion Gap 9.8 (7.0-16.0) 04/06/17 14:29 BUN 21 mg/dL (7-25) 04/06/17 14:29 Creatinine 1.0 mg/dL (0.6-1.2) 04/06/17 14:29 Est GFR ( Amer) TNP 04/06/17 14:29 Est GFR (Non-Af Amer) TNP 04/06/17 14:29 BUN/Creatinine Ratio 21.0 04/06/17 14:29 Glucose 82 mg/dL (70-105) 04/06/17 14:29 Hemoglobin A1c % 5.6 % (4.0-6.0) 04/06/17 14:29 Calcium 9.0 mg/dL (8.6-10.3) 04/06/17 14:29 Total Bilirubin 1.4 mg/dL (0.3-1.0) H 04/06/17 14:29 AST 33 U/L (13-39) 04/06/17 14:29 ALT 29 U/L (7-52) 04/06/17 14:29 Alkaline Phosphatase 123 U/L (34-104) H 04/06/17 14:29 Total Protein 5.7 gm/dL (6.0-8.3) L 04/06/17 14:29 Albumin 3.4 gm/dL (3.7-5.3) L 04/06/17 14:29 Globulin 2.3 gm/dL 04/06/17 14:29 Albumin/Globulin Ratio 1.5 (1.0-1.8) 04/06/17 14:29 Triglycerides 98 mg/dL (<150) 04/06/17 14:29 Cholesterol 167 mg/dL (<200) 04/06/17 14:29 LDL Cholesterol Direct 123 mg/dL (75-193) 04/06/17 14:29 HDL Cholesterol 40 mg/dL (23-92) 04/06/17 14:29 TSH 2.46 uIU/ml (0.34-5.60) 04/06/17 14:29 Salicylates < 25.0 mg/L (30.0-100.0) L 04/06/17 14:29 Acetaminophen < 10.0 ug/mL (10.0-30.0) L 04/06/17 14:29 Valproic Acid 45.6 ug/mL (50.0-100.0) L 04/11/17 10:40 Ethyl Alcohol < 10 mg/dL (0-10) 04/06/17 14:29 RPR NONREACTIVE (NONREACTIVE) 04/06/17 14:29 - Physical Exam Vitals and I&O: Vital Signs Temp 97.9 F 04/13/17 05:49 Pulse 85 04/13/17 05:49 Resp 18 04/13/17 05:49 BP 95/43 04/13/17 05:49 Pulse Ox 96 04/13/17 05:49 Intake & Output 04/12/17 04/13/17 04/13/17 18:59 06:59 18:59 Intake Total 800 60 Balance 800 60 Intake: Oral 800 60 Other: # Voids 3 2 # Bowel Movements 0 0 Active Medications: Current Medications Aspirin (Aspirin Chewable) 81 mg PO DAILY [facility] Stop: 06/06/17 08:59 Last Admin: 04/12/17 09:13 Dose: 81 mg Divalproex Sodium (Depakote Sprinkle) 125 mg PO Q8HR [facility]ACHID PRN Reason: Protocol Stop: 06/06/17 08:59 Last Admin: 04/13/17 05:10 Dose: 125 mg Donepezil HCl (Aricept) 5 mg PO HS [facility]ACHID Stop: 06/06/17 20:59 Last Admin: 04/12/17 20:59 Dose: 5 mg Furosemide (Lasix) 40 mg PO DAILY [facility] Stop: 06/06/17 08:59 Last Admin: 04/12/17 09:12 Dose: 40 mg Lisinopril (Zestril) 20 mg PO DAILY [facility]ACH[facility] Stop: 06/06/17 08:59 Last Admin: 04/12/17 09:12 Dose: 20 mg Lorazepam (Ativan) 1 mg IM Q4HR PRN; Protocol PRN Reason: Agitation Stop: 06/05/17 14:10 Last Admin: 04/06/17 14:20 Dose: 1 mg Lorazepam (Ativan) 0.5 mg PO Q4HR PRN; Protocol PRN Reason: Anxiety Stop: 06/05/17 18:20 Last Admin: 04/12/17 11:32 Dose: 0.5 mg Magnesium Hydroxide (Milk Of Magnesia) 30 ml PO DAILY PRN PRN Reason: Constipation Stop: 06/08/17 18:30 Last Admin: 04/10/17 14:28 Dose: 30 ml Metoprolol Tartrate (Lopressor) 25 mg PO DAILY [facility] Stop: 06/06/17 08:59 Last Admin: 04/12/17 09:12 Dose: 25 mg Quetiapine Fumarate (Seroquel) 50 mg PO HS RACHID PRN Reason: Protocol Stop: 06/05/17 20:59 Last Admin: 04/12/17 20:59 Dose: 50 mg Nutritional Asmnt/Malnutr-PDOC - Dietary Evaluation Malnutrition Findings (Please click <Entered> for more info): Nutritional Asmnt/Malnutrition Start: 04/11/17 16: 46 Text: Status: Complete Freq: Document 04/11/17 16:46 JENIFFERMANNY (Rec: 04/11/17 17:00 LCDANISHAG [email or web address]) Nutritional Asmnt/Malnutrition Patient General Information Nutritional Screening Moderate Risk Diagnosis agitation, psychosis Pertinent Medical Hx/Surgical Hx HTN, dementia Subjective Information Pt seen in activity room, confused, not responding questions. Spoke to nurse, pt eats well with feeding, consumed 100% of breakfast this morning, no nutrition concer at this time. Per notes , PO intake 50-100% in first 2 days, 100% in recent 2 days. Not approriate to perform physical exam at this time. Pt appeared skinny. Current Diet Order/ Nutrition Support Regular Pertinent Medications lasix, seroquel Pertinent Labs 04/06 Cl 109H, Alb 3.4L Nutritional Hx/Data Height 1.55 m Height (Calculated Centimeters) 154.9 Current Weight (lbs) 54.431 kg Weight (Calculated Kilograms) 54.4 Weight (Calculated Grams) 36662.1 [place] Body Weight 105 % [place] Body Weight 114 Body Mass Index (BMI) 22.6 Weight Status Approriate GI Symptoms GI Symptoms None Last BM 04/10 Difficult in: None Usual diet at home not able to obtain Skin Integrity/Comment: Doron score 18 skin dryness Estimated Nutritional Goals BEE in Kcals: Using Current wt Calories/Kcals/Kg 25-30 Kcals Calculated 5100-5255 Protein: Using Current wt Protein g/k Protein Calculated 55 Fluid: ml 8284-1391 Nutritional Problem No current Nutrition Prob Problem N/A Etiology N/A Signs/Symptoms: N/A Malnutrition Alert Protein-Calorie Malnutrition N/A Is there a minimum of two criteria No selected? Query Text:Check all the applicable criteria. A minimum of two criteria are recommended for diagnosis of either severe or non-severe malnutrition. Intervention/Recommendation Comments 1. continue with current diet as ordered 2. Monitor PO intake, wt weekly, skin, labs 3. F/U as low risk in 7 days 04/18 Expected Outcomes/Goals Expected Outcomes/Goals 1. PO intake continue to > 75% to meet nutritional needs 2. wt stability 3. labs to approach WNL 4. Skin to remain intact
[2017-04-13] MEDS: Aspirin 81mg Chewable Tab PO SCH (09:14)
--- NOTE | 2017-04-14 08:54 | Progress Notes ---
DATE: 04/13/2017 SUBJECTIVE: Chart reviewed and the patient interviewed. Also discussed the patient's condition with the staff and reviewed records and labs. The patient remains confused and she is banging her head against the wall. She also still has disorganized thoughts. She also is unable to answer any of my questions coherently and she is not able to even tell me anything about her feelings or her current condition. The patient also continues to be confused. MENTAL STATUS EXAMINATION: The patient is anxious and is confused and in irritable and angry mood. She also gets agitated easily, especially with asking her questions. ASSESSMENT: The patient is still psychotic. TREATMENT PLAN: We will continue to monitor her behavior and her condition closely. Also, the patient is compliant with taking her medications and we will continue Seroquel, Depakote, and Aricept same dose and we will monitor Depakote blood level. ESTIMATED LENGTH OF STAY: 5-7 days. JOB# [id number]
[2017-04-14] MEDS: Aspirin 81mg Chewable Tab PO SCH (09:20)
--- NOTE | 2017-04-14 11:06 | General Progress Note ---
Subjective - Review of Systems Events since last encounter: patient confused get irritable easily Objective - Results Result Diagrams: 04/06/17 14:29 04/06/17 14:29 Recent Labs: Laboratory Last Values WBC 6.0 Th/cmm (4.8-10.8) 04/06/17 14:29 RBC 4.66 Mil/cmm (3.80-5.20) 04/06/17 14:29 Hgb 14.6 gm/dL (12-16) 04/06/17 14:29 Hct 43.7 % (41.0-60) 04/06/17 14:29 MCV 93.8 fl (81-100) 04/06/17 14:29 MCH 31.3 pg (27.0-31.0) H 04/06/17 14:29 MCHC Differential 33.4 pg (28.0-36.0) 04/06/17 14:29 RDW 14.1 % (11.5-20.0) 04/06/17 14:29 Plt Count 147 Th/cmm (150-400) L 04/06/17 14:29 MPV 7.5 fl 04/06/17 14:29 Neutrophils % 65.6 % (40.0-80.0) 04/06/17 14: Lymphocytes % 16.7 % (20.0-50.0) L 04/06/17 14: Monocytes % 10.8 % (2.0-10.0) H 04/06/17 14:29 Eosinophils % 2.4 % (0.0-5.0) 04/06/17 14: Basophils % 4.5 % (0.0-2.0) H 04/06/17 14:29 Sodium 143 mEq/L (136-145) 04/06/17 14:29 Potassium 3.7 mEq/L (3.5-5.1) 04/06/17 14:29 Chloride 109 mEq/L (98-107) H 04/06/17 14:29 Carbon Dioxide 27.9 mEq/L (21.0-31.0) 04/06/17 14:29 Anion Gap 9.8 (7.0-16.0) 04/06/17 14:29 BUN 21 mg/dL (7-25) 04/06/17 14:29 Creatinine 1.0 mg/dL (0.6-1.2) 04/06/17 14:29 Est GFR ( Amer) TNP 04/06/17 14:29 Est GFR (Non-Af Amer) TNP 04/06/17 14:29 BUN/Creatinine Ratio 21.0 04/06/17 14:29 Glucose 82 mg/dL (70-105) 04/06/17 14:29 Hemoglobin A1c % 5.6 % (4.0-6.0) 04/06/17 14:29 Calcium 9.0 mg/dL (8.6-10.3) 04/06/17 14:29 Total Bilirubin 1.4 mg/dL (0.3-1.0) H 04/06/17 14:29 AST 33 U/L (13-39) 04/06/17 14:29 ALT 29 U/L (7-52) 04/06/17 14:29 Alkaline Phosphatase 123 U/L (34-104) H 04/06/17 14:29 Total Protein 5.7 gm/dL (6.0-8.3) L 04/06/17 14:29 Albumin 3.4 gm/dL (3.7-5.3) L 04/06/17 14:29 Globulin 2.3 gm/dL 04/06/17 14:29 Albumin/Globulin Ratio 1.5 (1.0-1.8) 04/06/17 14:29 Triglycerides 98 mg/dL (<150) 04/06/17 14:29 Cholesterol 167 mg/dL (<200) 04/06/17 14:29 LDL Cholesterol Direct 123 mg/dL (75-193) 04/06/17 14:29 HDL Cholesterol 40 mg/dL (23-92) 04/06/17 14:29 TSH 2.46 uIU/ml (0.34-5.60) 04/06/17 14:29 Salicylates < 25.0 mg/L (30.0-100.0) L 04/06/17 14:29 Acetaminophen < 10.0 ug/mL (10.0-30.0) L 04/06/17 14:29 Valproic Acid 45.6 ug/mL (50.0-100.0) L 04/11/17 10:40 Ethyl Alcohol < 10 mg/dL (0-10) 04/06/17 14:29 RPR NONREACTIVE (NONREACTIVE) 04/06/17 14:29 - Physical Exam Vitals and I&O: Vital Signs Temp 97.8 F 04/13/17 20:00 Pulse 110 04/14/17 09:21 Resp 19 04/13/17 20:00 BP 112/86 04/14/17 09:21 Pulse Ox 97 04/13/17 20:00 Intake & Output 04/13/17 04/14/17 04/14/17 18:59 06:59 18:59 Intake Total 700 120 Balance 700 120 Intake: Oral 700 120 Other: # Voids 3 3 # Bowel Movements 0 Active Medications: Current Medications Aspirin (Aspirin Chewable) 81 mg PO DAILY [facility] Stop: 06/06/17 08:59 Last Admin: 04/14/17 09:20 Dose: 81 mg Divalproex Sodium (Depakote Sprinkle) 125 mg PO Q8HR RACHID PRN Reason: Protocol Stop: 06/06/17 08:59 Last Admin: 04/14/17 05:59 Dose: 125 mg Donepezil HCl (Aricept) 5 mg PO HS [facility] Stop: 06/06/17 20:59 Last Admin: 04/13/17 21:09 Dose: 5 mg Furosemide (Lasix) 40 mg PO DAILY [facility] Stop: 06/06/17 08:59 Last Admin: 04/14/17 09:20 Dose: 40 mg Lisinopril (Zestril) 20 mg PO DAILY [facility] Stop: 06/06/17 08:59 Last Admin: 04/14/17 09:20 Dose: 20 mg Lorazepam (Ativan) 0.5 mg PO Q4HR PRN; Protocol PRN Reason: Anxiety Stop: 06/05/17 18:20 Last Admin: 04/13/17 21:09 Dose: 0.5 mg Magnesium Hydroxide (Milk Of Magnesia) 30 ml PO DAILY PRN PRN Reason: Constipation Stop: 06/08/17 18:30 Last Admin: 04/10/17 14:28 Dose: 30 ml Metoprolol Tartrate (Lopressor) 25 mg PO DAILY [facility] Stop: 06/06/17 08:59 Last Admin: 04/14/17 09:21 Dose: 25 mg Quetiapine Fumarate (Seroquel) 50 mg PO HS RACHID PRN Reason: Protocol Stop: 06/05/17 20:59 Last Admin: 04/13/17 21:09 Dose: 50 mg Quetiapine Fumarate (Seroquel) 25 mg PO DAILY RACHID PRN Reason: Protocol Stop: 06/13/17 08:59 Last Admin: 04/14/17 09:24 Dose: 25 mg Nutritional Asmnt/Malnutr-PDOC - Dietary Evaluation Malnutrition Findings (Please click <Entered> for more info): Nutritional Asmnt/Malnutrition Start: 04/11/17 16: 46 Text: Status: Complete Freq: Document 04/11/17 16:46 MANNY (Rec: 04/11/17 17:00 LCDANISHAG [email or web address]) Nutritional Asmnt/Malnutrition Patient General Information Nutritional Screening Moderate Risk Diagnosis agitation, psychosis Pertinent Medical Hx/Surgical Hx HTN, dementia Subjective Information Pt seen in activity room, confused, not responding questions. Spoke to nurse, pt eats well with feeding, consumed 100% of breakfast this morning, no nutrition concer at this time. Per notes , PO intake 50-100% in first 2 days, 100% in recent 2 days. Not approriate to perform physical exam at this time. Pt appeared skinny. Current Diet Order/ Nutrition Support Regular Pertinent Medications lasix, seroquel Pertinent Labs 04/06 Cl 109H, Alb 3.4L Nutritional Hx/Data Height 1.55 m Height (Calculated Centimeters) 154.9 Current Weight (lbs) 54.431 kg Weight (Calculated Kilograms) 54.4 Weight (Calculated Grams) 31190.1 [place] Body Weight 105 % [place] Body Weight 114 Body Mass Index (BMI) 22.6 Weight Status Approriate GI Symptoms GI Symptoms None Last BM 04/10 Difficult in: None Usual diet at home not able to obtain Skin Integrity/Comment: Doron score 18 skin dryness Estimated Nutritional Goals BEE in Kcals: Using Current wt Calories/Kcals/Kg 25-30 Kcals Calculated 0666-1217 Protein: Using Current wt Protein g/k Protein Calculated 55 Fluid: ml 0156-7674 Nutritional Problem No current Nutrition Prob Problem N/A Etiology N/A Signs/Symptoms: N/A Malnutrition Alert Protein-Calorie Malnutrition N/A Is there a minimum of two criteria No selected? Query Text:Check all the applicable criteria. A minimum of two criteria are recommended for diagnosis of either severe or non-severe malnutrition. Intervention/Recommendation Comments 1. continue with current diet as ordered 2. Monitor PO intake, wt weekly, skin, labs 3. F/U as low risk in 7 days 04/18 Expected Outcomes/Goals Expected Outcomes/Goals 1. PO intake continue to > 75% to meet nutritional needs 2. wt stability 3. labs to approach WNL 4. Skin to remain intact
--- NOTE | 2017-04-14 19:33 | Progress Notes ---
DATE: 04/14/2017 SUBJECTIVE: Chart reviewed and the patient interviewed. Also discussed the patient's condition with the staff and reviewed records and labs. The patient remains confused and she is still suspicious and is still paranoid. The patient also is withdrawn and interacting minimally with peers and with others. She also is still easily agitated and easily irritable and in angry mood in general and needs lots of redirections. She also is still banging her fist against the bed rails and she is very confused and was not able to answer any of my questions coherently. During interview, the patient is subjectively mute and did not want to answer any of my questions. She also seems to be preoccupied. ASSESSMENT: The patient is still confused and psychotic and easily agitated. TREATMENT PLAN: We will continue to monitor her behavior and her condition closely. Also, Depakote blood level came back to be 45.6, which is slightly below therapeutic levels. We will continue same dose. We will increase Seroquel to 25 mg in the morning and 50 mg at bedtime and we will continue to work on her agitation and aggressive behavior. The patient is still can be dangerous to others with her irritability and her agitation and being uncooperative. JOB# [id number]
[2017-04-15] MEDS: Aspirin 81mg Chewable Tab PO SCH (10:02)
--- NOTE | 2017-04-15 11:38 | Internal Medicine Prog Note ---
Internal Medicine Subjective - Subjective Service Date: 04/15/17 Patient is:: awake Per staff patient has:: tolerating meds Internal Medicine Objective - Results Result Diagrams: 04/06/17 14:29 04/06/17 14:29 Recent Labs: Laboratory Last Values WBC 6.0 Th/cmm (4.8-10.8) 04/06/17 14:29 RBC 4.66 Mil/cmm (3.80-5.20) 04/06/17 14:29 Hgb 14.6 gm/dL (12-16) 04/06/17 14:29 Hct 43.7 % (41.0-60) 04/06/17 14:29 MCV 93.8 fl (81-100) 04/06/17 14:29 MCH 31.3 pg (27.0-31.0) H 04/06/17 14:29 MCHC Differential 33.4 pg (28.0-36.0) 04/06/17 14:29 RDW 14.1 % (11.5-20.0) 04/06/17 14:29 Plt Count 147 Th/cmm (150-400) L 04/06/17 14:29 MPV 7.5 fl 04/06/17 14:29 Neutrophils % 65.6 % (40.0-80.0) 04/06/17 14:29 Lymphocytes % 16.7 % (20.0-50.0) L 04/06/17 14: Monocytes % 10.8 % (2.0-10.0) H 04/06/17 14: Eosinophils % 2.4 % (0.0-5.0) 04/06/17 14:29 Basophils % 4.5 % (0.0-2.0) H 04/06/17 14:29 Sodium 143 mEq/L (136-145) 04/06/17 14:29 Potassium 3.7 mEq/L (3.5-5.1) 04/06/17 14:29 Chloride 109 mEq/L (98-107) H 04/06/17 14:29 Carbon Dioxide 27.9 mEq/L (21.0-31.0) 04/06/17 14:29 Anion Gap 9.8 (7.0-16.0) 04/06/17 14:29 BUN 21 mg/dL (7-25) 04/06/17 14:29 Creatinine 1.0 mg/dL (0.6-1.2) 04/06/17 14:29 Est GFR ( Amer) TNP 04/06/17 14:29 Est GFR (Non-Af Amer) TNP 04/06/17 14:29 BUN/Creatinine Ratio 21.0 04/06/17 14:29 Glucose 82 mg/dL (70-105) 04/06/17 14:29 Hemoglobin A1c % 5.6 % (4.0-6.0) 04/06/17 14:29 Calcium 9.0 mg/dL (8.6-10.3) 04/06/17 14:29 Total Bilirubin 1.4 mg/dL (0.3-1.0) H 04/06/17 14:29 AST 33 U/L (13-39) 04/06/17 14:29 ALT 29 U/L (7-52) 04/06/17 14:29 Alkaline Phosphatase 123 U/L (34-104) H 04/06/17 14:29 Total Protein 5.7 gm/dL (6.0-8.3) L 04/06/17 14:29 Albumin 3.4 gm/dL (3.7-5.3) L 04/06/17 14:29 Globulin 2.3 gm/dL 04/06/17 14:29 Albumin/Globulin Ratio 1.5 (1.0-1.8) 04/06/17 14:29 Triglycerides 98 mg/dL (<150) 04/06/17 14:29 Cholesterol 167 mg/dL (<200) 04/06/17 14:29 LDL Cholesterol Direct 123 mg/dL (75-193) 04/06/17 14:29 HDL Cholesterol 40 mg/dL (23-92) 04/06/17 14:29 TSH 2.46 uIU/ml (0.34-5.60) 04/06/17 14:29 Salicylates < 25.0 mg/L (30.0-100.0) L 04/06/17 14:29 Acetaminophen < 10.0 ug/mL (10.0-30.0) L 04/06/17 14:29 Valproic Acid 45.6 ug/mL (50.0-100.0) L 04/11/17 10:40 Ethyl Alcohol < 10 mg/dL (0-10) 04/06/17 14:29 RPR NONREACTIVE (NONREACTIVE) 04/06/17 14:29 - Physical Exam Vitals and I&O: Vital Signs Temp 97.6 F 04/15/17 06:52 Pulse 101 04/15/17 10:10 Resp 18 04/15/17 06:52 BP 93/46 04/15/17 10:10 Pulse Ox 98 04/15/17 06:52 Intake & Output 04/14/17 04/15/17 04/15/17 18:59 06:59 18:59 Intake Total 1000 Balance 1000 Intake: Oral 1000 Other: # Voids 3 # Bowel Movements 0 Active Medications: Current Medications Aspirin (Aspirin Chewable) 81 mg PO DAILY [facility] Stop: 06/06/17 08:59 Last Admin: 04/15/17 10:02 Dose: 81 mg Divalproex Sodium (Depakote Sprinkle) 125 mg PO Q8HR [facility] PRN Reason: Protocol Stop: 06/06/17 08:59 Last Admin: 04/15/17 05:18 Dose: 125 mg Donepezil HCl (Aricept) 5 mg PO HS [facility] Stop: 06/06/17 20:59 Last Admin: 04/14/17 21:22 Dose: 5 mg Furosemide (Lasix) 40 mg PO DAILY [facility] Stop: 06/06/17 08:59 Last Admin: 04/15/17 10:09 Dose: Not Given Lisinopril (Zestril) 20 mg PO DAILY [facility] Stop: 06/06/17 08:59 Last Admin: 04/15/17 10:09 Dose: Not Given Lorazepam (Ativan) 0.5 mg PO Q4HR PRN; Protocol PRN Reason: Anxiety Stop: 06/05/17 18:20 Last Admin: 04/13/17 21:09 Dose: 0.5 mg Magnesium Hydroxide (Milk Of Magnesia) 30 ml PO DAILY PRN PRN Reason: Constipation Stop: 06/08/17 18:30 Last Admin: 04/10/17 14:28 Dose: 30 ml Metoprolol Tartrate (Lopressor) 25 mg PO DAILY [facility] Stop: 06/06/17 08:59 Last Admin: 04/15/17 10:10 Dose: Not Given Quetiapine Fumarate (Seroquel) 50 mg PO HS RACHID PRN Reason: Protocol Stop: 06/05/17 20:59 Last Admin: 04/14/17 21:23 Dose: 50 mg Quetiapine Fumarate (Seroquel) 25 mg PO DAILY [facility] PRN Reason: Protocol Stop: 06/13/17 08:59 Last Admin: 04/15/17 10:02 Dose: 25 mg Trazodone HCl (Desyrel) 50 mg PO HS RACHID PRN Reason: Protocol Stop: 06/14/17 20:59 General: alert HEENT: NC/AT, PERRLA Neck: Supple Lungs: CTAB Cardiovascular: RRR, Normal S1, Normal S2, without murmur Abdomen: soft, non-tender, non-distended Neurological: no change Internal Medicine Assmt/Plan - Assessment Assessment: psychosis dementia htn - Plan Plan: fall precautions continue current treatment Nutritional Asmnt/Malnutr-PDOC - Dietary Evaluation Malnutrition Findings (Please click <Entered> for more info): Nutritional Asmnt/Malnutrition Start: 04/11/17 16: 46 Text: Status: Complete Freq: Document 04/11/17 16:46 [facility] (Rec: 04/11/17 17:00 HENG [email or web address]) Nutritional Asmnt/Malnutrition Patient General Information Nutritional Screening Moderate Risk Diagnosis agitation, psychosis Pertinent Medical Hx/Surgical Hx HTN, dementia Subjective Information Pt seen in activity room, confused, not responding questions. Spoke to nurse, pt eats well with feeding, consumed 100% of breakfast this morning, no nutrition concer at this time. Per notes , PO intake 50-100% in first 2 days, 100% in recent 2 days. Not approriate to perform physical exam at this time. Pt appeared skinny. Current Diet Order/ Nutrition Support Regular Pertinent Medications lasix, seroquel Pertinent Labs 04/06 Cl 109H, Alb 3.4L Nutritional Hx/Data Height 5 ft 1 in Height (Calculated Centimeters) 154.9 Current Weight (lbs) 120 lb Weight (Calculated Kilograms) 54.4 Weight (Calculated Grams) 48646.1 [place] Body Weight 105 % [place] Body Weight 114 Body Mass Index (BMI) 22.6 Weight Status Approriate GI Symptoms GI Symptoms None Last BM 04/10 Difficult in: None Usual diet at home not able to obtain Skin Integrity/Comment: Doron score 18 skin dryness Estimated Nutritional Goals BEE in Kcals: Using Current wt Calories/Kcals/Kg 25-30 Kcals Calculated 2587-4361 Protein: Using Current wt Protein g/k Protein Calculated 55 Fluid: ml 7403-5218 Nutritional Problem No current Nutrition Prob Problem N/A Etiology N/A Signs/Symptoms: N/A Malnutrition Alert Protein-Calorie Malnutrition N/A Is there a minimum of two criteria No selected? Query Text:Check all the applicable criteria. A minimum of two criteria are recommended for diagnosis of either severe or non-severe malnutrition. Intervention/Recommendation Comments 1. continue with current diet as ordered 2. Monitor PO intake, wt weekly, skin, labs 3. F/U as low risk in 7 days 04/18 Expected Outcomes/Goals Expected Outcomes/Goals 1. PO intake continue to > 75% to meet nutritional needs 2. wt stability 3. labs to approach WNL 4. Skin to remain intact
--- NOTE | 2017-04-16 01:53 | Progress Notes ---
DATE: 04/15/2017 Chart reviewed and the patient interviewed. Also, discussed the patient's condition with the staff and reviewed records and labs. The patient is still having episodes of irritability and anger. The patient also is still suspicious and is still paranoid. The patient also has difficulty sleeping at night and last night the patient did not sleep at all according to the staff. She also is still having episodes of agitation and irritability, was yelling and screaming. Otherwise, the patient is compliant with taking her medications. MENTAL STATUS EXAMINATION: The patient appears her stated age. Disheveled. Anxious. In irritable mood. Guarded and confused and unable to answer any of my questions coherently. ASSESSMENT: The patient is still psychotic and considered to be gravely disabled. TREATMENT PLAN: We will continue to monitor her behavior and her condition closely. Also, we will work on her agitation and irritability and her confusion. Also, we will continue to work on her anger and we will continue to follow up. Also, we will add trazodone 50 mg at bedtime and we will continue to follow up. EXPECTED LENGTH OF STAY: 2-4 days. JOB# [id number]
[2017-04-16] MEDS: Aspirin 81mg Chewable Tab PO SCH (09:17)
[2017-04-16] MEDS ORDERED: Guaifenesin DM 10 ML UDC PO PRN (12:42)
--- NOTE | 2017-04-17 08:09 | General Progress Note ---
Subjective - Review of Systems Events since last encounter: patient is awake confused psychotic chart reviewed Objective - Results Result Diagrams: 04/06/17 14:29 04/06/17 14:29 Recent Labs: Laboratory Last Values WBC 6.0 Th/cmm (4.8-10.8) 04/06/17 14:29 RBC 4.66 Mil/cmm (3.80-5.20) 04/06/17 14:29 Hgb 14.6 gm/dL (12-16) 04/06/17 14:29 Hct 43.7 % (41.0-60) 04/06/17 14:29 MCV 93.8 fl (81-100) 04/06/17 14:29 MCH 31.3 pg (27.0-31.0) H 04/06/17 14:29 MCHC Differential 33.4 pg (28.0-36.0) 04/06/17 14:29 RDW 14.1 % (11.5-20.0) 04/06/17 14:29 Plt Count 147 Th/cmm (150-400) L 04/06/17 14:29 MPV 7.5 fl 04/06/17 14:29 Neutrophils % 65.6 % (40.0-80.0) 04/06/17 14: Lymphocytes % 16.7 % (20.0-50.0) L 04/06/17 14: Monocytes % 10.8 % (2.0-10.0) H 04/06/17 14:29 Eosinophils % 2.4 % (0.0-5.0) 04/06/17 14:29 Basophils % 4.5 % (0.0-2.0) H 04/06/17 14:29 Sodium 143 mEq/L (136-145) 04/06/17 14:29 Potassium 3.7 mEq/L (3.5-5.1) 04/06/17 14:29 Chloride 109 mEq/L (98-107) H 04/06/17 14:29 Carbon Dioxide 27.9 mEq/L (21.0-31.0) 04/06/17 14:29 Anion Gap 9.8 (7.0-16.0) 04/06/17 14:29 BUN 21 mg/dL (7-25) 04/06/17 14:29 Creatinine 1.0 mg/dL (0.6-1.2) 04/06/17 14:29 Est GFR ( Amer) TNP 04/06/17 14:29 Est GFR (Non-Af Amer) TNP 04/06/17 14:29 BUN/Creatinine Ratio 21.0 04/06/17 14:29 Glucose 82 mg/dL (70-105) 04/06/17 14:29 Hemoglobin A1c % 5.6 % (4.0-6.0) 04/06/17 14:29 Calcium 9.0 mg/dL (8.6-10.3) 04/06/17 14:29 Total Bilirubin 1.4 mg/dL (0.3-1.0) H 04/06/17 14:29 AST 33 U/L (13-39) 04/06/17 14:29 ALT 29 U/L (7-52) 04/06/17 14:29 Alkaline Phosphatase 123 U/L (34-104) H 04/06/17 14:29 Total Protein 5.7 gm/dL (6.0-8.3) L 04/06/17 14:29 Albumin 3.4 gm/dL (3.7-5.3) L 04/06/17 14:29 Globulin 2.3 gm/dL 04/06/17 14:29 Albumin/Globulin Ratio 1.5 (1.0-1.8) 04/06/17 14:29 Triglycerides 98 mg/dL (<150) 04/06/17 14:29 Cholesterol 167 mg/dL (<200) 04/06/17 14:29 LDL Cholesterol Direct 123 mg/dL (75-193) 04/06/17 14:29 HDL Cholesterol 40 mg/dL (23-92) 04/06/17 14:29 TSH 2.46 uIU/ml (0.34-5.60) 04/06/17 14:29 Salicylates < 25.0 mg/L (30.0-100.0) L 04/06/17 14:29 Acetaminophen < 10.0 ug/mL (10.0-30.0) L 04/06/17 14:29 Valproic Acid 45.6 ug/mL (50.0-100.0) L 04/11/17 10:40 Ethyl Alcohol < 10 mg/dL (0-10) 04/06/17 14:29 RPR NONREACTIVE (NONREACTIVE) 04/06/17 14:29 - Physical Exam Vitals and I&O: Vital Signs Temp 98.2 F 04/17/17 06:36 Pulse 83 04/17/17 06:36 Resp 18 04/17/17 06:36 BP 153/77 04/17/17 06:36 Pulse Ox 99 04/17/17 06:36 Intake & Output 04/16/17 04/17/17 04/17/17 18:59 06:59 18:59 Intake Total 700 120 Balance 700 120 Intake: Oral 700 120 Other: # Voids 3 3 # Bowel Movements 1 Active Medications: Current Medications Aspirin (Aspirin Chewable) 81 mg PO DAILY [facility] Stop: 06/06/17 08:59 Last Admin: 04/16/17 09:17 Dose: 81 mg Divalproex Sodium (Depakote Sprinkle) 125 mg PO Q8HR [facility] PRN Reason: Protocol Stop: 06/06/17 08:59 Last Admin: 04/17/17 05:35 Dose: 125 mg Donepezil HCl (Aricept) 5 mg PO HS [facility] Stop: 06/06/17 20:59 Last Admin: 04/16/17 20:46 Dose: 5 mg Furosemide (Lasix) 40 mg PO DAILY [facility] Stop: 06/06/17 08:59 Last Admin: 04/16/17 09:16 Dose: Not Given Guaifenesin/Dextromethorphan (Robitussin Dm) 10 ml PO Q6HR PRN PRN Reason: Cough Stop: 06/15/17 12:41 Lisinopril (Zestril) 20 mg PO DAILY [facility] Stop: 06/06/17 08:59 Last Admin: 04/16/17 09:16 Dose: Not Given Lorazepam (Ativan) 0.5 mg PO Q4HR PRN; Protocol PRN Reason: Anxiety Stop: 06/05/17 18:20 Last Admin: 04/17/17 05:35 Dose: 0.5 mg Magnesium Hydroxide (Milk Of Magnesia) 30 ml PO DAILY PRN PRN Reason: Constipation Stop: 06/08/17 18:30 Last Admin: 04/10/17 14:28 Dose: 30 ml Metoprolol Tartrate (Lopressor) 25 mg PO DAILY [facility] Stop: 06/06/17 08:59 Last Admin: 04/16/17 09:16 Dose: Not Given Quetiapine Fumarate (Seroquel) 50 mg PO HS [facility] PRN Reason: Protocol Stop: 06/05/17 20:59 Last Admin: 04/16/17 20:46 Dose: 50 mg Quetiapine Fumarate (Seroquel) 25 mg PO DAILY [facility] PRN Reason: Protocol Stop: 06/13/17 08:59 Last Admin: 04/16/17 09:17 Dose: 25 mg Trazodone HCl (Desyrel) 50 mg PO HS [facility] PRN Reason: Protocol Stop: 06/14/17 20:59 Last Admin: 04/16/17 20:46 Dose: 50 mg Nutritional Asmnt/Malnutr-PDOC - Dietary Evaluation Malnutrition Findings (Please click <Entered> for more info): Nutritional Asmnt/Malnutrition Start: 04/11/17 16: 46 Text: Status: Complete Freq: Document 04/11/17 16:46 JENNIFER (Rec: 04/11/17 17:00 JENNIFER [email or web address]) Nutritional Asmnt/Malnutrition Patient General Information Nutritional Screening Moderate Risk Diagnosis agitation, psychosis Pertinent Medical Hx/Surgical Hx HTN, dementia Subjective Information Pt seen in activity room, confused, not responding questions. Spoke to nurse, pt eats well with feeding, consumed 100% of breakfast this morning, no nutrition concer at this time. Per notes , PO intake 50-100% in first 2 days, 100% in recent 2 days. Not approriate to perform physical exam at this time. Pt appeared skinny. Current Diet Order/ Nutrition Support Regular Pertinent Medications lasix, seroquel Pertinent Labs 04/06 Cl 109H, Alb 3.4L Nutritional Hx/Data Height 1.55 m Height (Calculated Centimeters) 154.9 Current Weight (lbs) 54.431 kg Weight (Calculated Kilograms) 54.4 Weight (Calculated Grams) 97148.1 [place] Body Weight 105 % [place] Body Weight 114 Body Mass Index (BMI) 22.6 Weight Status Approriate GI Symptoms GI Symptoms None Last BM 04/10 Difficult in: None Usual diet at home not able to obtain Skin Integrity/Comment: Doron score 18 skin dryness Estimated Nutritional Goals BEE in Kcals: Using Current wt Calories/Kcals/Kg 25-30 Kcals Calculated 3058-0865 Protein: Using Current wt Protein g/k Protein Calculated 55 Fluid: ml 6568-6283 Nutritional Problem No current Nutrition Prob Problem N/A Etiology N/A Signs/Symptoms: N/A Malnutrition Alert Protein-Calorie Malnutrition N/A Is there a minimum of two criteria No selected? Query Text:Check all the applicable criteria. A minimum of two criteria are recommended for diagnosis of either severe or non-severe malnutrition. Intervention/Recommendation Comments 1. continue with current diet as ordered 2. Monitor PO intake, wt weekly, skin, labs 3. F/U as low risk in 7 days 04/18 Expected Outcomes/Goals Expected Outcomes/Goals 1. PO intake continue to > 75% to meet nutritional needs 2. wt stability 3. labs to approach WNL 4. Skin to remain intact
[2017-04-17] MEDS: Aspirin 81mg Chewable Tab PO SCH (08:28)
--- NOTE | 2017-04-17 09:02 | Diagnostic Imaging Report ---
Portable chest x-ray HISTORY: Shortness of breath Allowing for portable technique, the heart size appears to be at the upper limits of normal. Atherosclerotic calcification noted in the aorta and carotid artery regions. No acute focal pulmonary processes IMPRESSION: 1. No acute focal pulmonary processes 2. Atherosclerotic vascular changes
--- NOTE | 2017-04-17 12:28 | Progress Notes ---
DATE: 04/16/2017 SUBJECTIVE: The patient was seen in the dining area, having lunch with . According to nurses, the patient has episode of congestion and coughing. Today the patient appears to be comfortable. No acute distress. OBJECTIVE: VITAL SIGNS: Temperature 97.6, heart rate 89, blood pressure is 103/50, respirations 19, 96% on the room air. HEENT: Head is atraumatic and normocephalic. Eyes: Bilateral conjunctivae are clear. Bilateral pupils are equally round and reactive. NECK: Supple. No JVD. CARDIOVASCULAR: S1 and S2, without murmur. PULMONARY: Clear to auscultation. GASTROINTESTINAL: Soft and nontender without guarding. Positive bowel sounds. MUSCULOSKELETAL: No clubbing, no cyanosis noted ASSESSMENT: 1. Dementia. 2. Psychosis. 3. Hypertension. 4. Osteoarthritis. PLAN: We will do chest x-ray to rule out any aspiration pneumonia. We will also give cough medicine as needed. We will continue to monitor the patient's condition and behavior. We will keep the patient inpatient in the Psychiatric Unit. Treatment plans were discussed with the patient's nurse. Treatment plans were discussed with Dr. Quezada. JOB# [id number]
--- NOTE | 2017-04-18 03:45 | Progress Notes ---
DATE: 04/17/2017 SUBJECTIVE: Chart reviewed and the patient interviewed. Also discussed the patient's condition with the staff and reviewed records and labs. The patient is still suspicious and she is still in angry and in irritable mood. The patient also is still paranoid about her surroundings. The patient also still has episodes of yelling and screaming and difficult to redirect her. She also is still having severe mood swings. She also had difficulty sleeping at night, though it seems that slept better last night. ASSESSMENT: The patient is still psychotic and still need close monitoring. TREATMENT PLAN: We will continue monitoring her behavior and her condition closely. Also, continue adjusting psychotropic medications and working on behavioral modification. [facility]# [id number]
--- NOTE | 2017-04-18 04:11 | Progress Notes ---
DATE: SUBJECTIVE: Chart reviewed and the patient interviewed. Also discussed the patient's condition with the staff and reviewed records and labs. The patient is still severely angry. The patient also is still in irritable mood and she has difficulty ____, although she is sleeping slightly better, but she still has difficulty sleeping because of her coughing. She is also still confused. Also during interview, the patient seems to be actively responding to stimuli and she still needs lots of redirections because the patient is suspicious and is still paranoid. MENTAL STATUS EXAMINATION: The patient is disheveled. She is easily agitated. The patient also is still reporting auditory hallucinations, but she is guarded. ASSESSMENT: The patient is still confused and considered to be gravely disabled. TREATMENT PLAN: We will continue to monitor her behavior and her condition closely. Also, continue to work on ____ and adjusting psychotropic medications. JOB# [id number]
[2017-04-18] MEDS: Aspirin 81mg Chewable Tab PO SCH (08:40)
--- NOTE | 2017-04-18 14:52 | General Progress Note ---
Subjective - Review of Systems Events since last encounter: patient is psychotic confused Objective - Results Result Diagrams: 04/06/17 14:29 04/06/17 14:29 Recent Labs: Laboratory Last Values WBC 6.0 Th/cmm (4.8-10.8) 04/06/17 14:29 RBC 4.66 Mil/cmm (3.80-5.20) 04/06/17 14:29 Hgb 14.6 gm/dL (12-16) 04/06/17 14:29 Hct 43.7 % (41.0-60) 04/06/17 14:29 MCV 93.8 fl (81-100) 04/06/17 14:29 MCH 31.3 pg (27.0-31.0) H 04/06/17 14:29 MCHC Differential 33.4 pg (28.0-36.0) 04/06/17 14:29 RDW 14.1 % (11.5-20.0) 04/06/17 14:29 Plt Count 147 Th/cmm (150-400) L 04/06/17 14:29 MPV 7.5 fl 04/06/17 14:29 Neutrophils % 65.6 % (40.0-80.0) 04/06/17 14: Lymphocytes % 16.7 % (20.0-50.0) L 04/06/17 14: Monocytes % 10.8 % (2.0-10.0) H 04/06/17 14:29 Eosinophils % 2.4 % (0.0-5.0) 04/06/17 14: Basophils % 4.5 % (0.0-2.0) H 04/06/17 14:29 Sodium 143 mEq/L (136-145) 04/06/17 14:29 Potassium 3.7 mEq/L (3.5-5.1) 04/06/17 14:29 Chloride 109 mEq/L (98-107) H 04/06/17 14:29 Carbon Dioxide 27.9 mEq/L (21.0-31.0) 04/06/17 14:29 Anion Gap 9.8 (7.0-16.0) 04/06/17 14:29 BUN 21 mg/dL (7-25) 04/06/17 14:29 Creatinine 1.0 mg/dL (0.6-1.2) 04/06/17 14:29 Est GFR ( Amer) TNP 04/06/17 14:29 Est GFR (Non-Af Amer) TNP 04/06/17 14:29 BUN/Creatinine Ratio 21.0 04/06/17 14:29 Glucose 82 mg/dL (70-105) 04/06/17 14:29 Hemoglobin A1c % 5.6 % (4.0-6.0) 04/06/17 14:29 Calcium 9.0 mg/dL (8.6-10.3) 04/06/17 14:29 Total Bilirubin 1.4 mg/dL (0.3-1.0) H 04/06/17 14:29 AST 33 U/L (13-39) 04/06/17 14:29 ALT 29 U/L (7-52) 04/06/17 14:29 Alkaline Phosphatase 123 U/L (34-104) H 04/06/17 14:29 Total Protein 5.7 gm/dL (6.0-8.3) L 04/06/17 14:29 Albumin 3.4 gm/dL (3.7-5.3) L 04/06/17 14:29 Globulin 2.3 gm/dL 04/06/17 14:29 Albumin/Globulin Ratio 1.5 (1.0-1.8) 04/06/17 14:29 Triglycerides 98 mg/dL (<150) 04/06/17 14:29 Cholesterol 167 mg/dL (<200) 04/06/17 14:29 LDL Cholesterol Direct 123 mg/dL (75-193) 04/06/17 14:29 HDL Cholesterol 40 mg/dL (23-92) 04/06/17 14:29 TSH 2.46 uIU/ml (0.34-5.60) 04/06/17 14:29 Salicylates < 25.0 mg/L (30.0-100.0) L 04/06/17 14:29 Acetaminophen < 10.0 ug/mL (10.0-30.0) L 04/06/17 14:29 Valproic Acid 45.6 ug/mL (50.0-100.0) L 04/11/17 10:40 Ethyl Alcohol < 10 mg/dL (0-10) 04/06/17 14:29 RPR NONREACTIVE (NONREACTIVE) 04/06/17 14:29 - Physical Exam Vitals and I&O: Vital Signs Temp 98.2 F 04/18/17 14:47 Pulse 93 04/18/17 14:47 Resp 20 04/18/17 14:47 BP 113/48 04/18/17 14:47 Pulse Ox 95 04/18/17 14:47 Intake & Output 04/17/17 04/18/17 04/18/17 18:59 06:59 18:59 Intake Total 700 180 Balance 700 180 Intake: Oral 700 180 Other: # Voids 3 1 # Bowel Movements 0 0 Active Medications: Current Medications Aspirin (Aspirin Chewable) 81 mg PO DAILY [facility] Stop: 06/06/17 08:59 Last Admin: 04/18/17 08:40 Dose: 81 mg Benztropine Mesylate (Cogentin) 0.5 mg PO BID [facility] Stop: 06/17/17 08:59 Last Admin: 04/18/17 08:41 Dose: 0.5 mg Divalproex Sodium (Depakote Sprinkle) 125 mg PO Q8HR [facility] PRN Reason: Protocol Stop: 06/06/17 08:59 Last Admin: 04/18/17 12:57 Dose: 125 mg Donepezil HCl (Aricept) 5 mg PO HS [facility] Stop: 06/06/17 20:59 Last Admin: 04/17/17 21:12 Dose: 5 mg Furosemide (Lasix) 40 mg PO DAILY [facility] Stop: 06/06/17 08:59 Last Admin: 04/18/17 08:43 Dose: 40 mg Guaifenesin/Dextromethorphan (Robitussin Dm) 10 ml PO Q6HR PRN PRN Reason: Cough Stop: 06/15/17 12:41 Lisinopril (Zestril) 20 mg PO DAILY [facility] Stop: 06/06/17 08:59 Last Admin: 04/18/17 08:41 Dose: 20 mg Lorazepam (Ativan) 0.5 mg PO Q4HR PRN; Protocol PRN Reason: Anxiety Stop: 06/05/17 18:20 Last Admin: 04/17/17 21:12 Dose: 0.5 mg Magnesium Hydroxide (Milk Of Magnesia) 30 ml PO DAILY PRN PRN Reason: Constipation Stop: 06/08/17 18:30 Last Admin: 04/10/17 14:28 Dose: 30 ml Metoprolol Tartrate (Lopressor) 25 mg PO DAILY [facility] Stop: 06/06/17 08:59 Last Admin: 04/18/17 08:42 Dose: 25 mg Quetiapine Fumarate (Seroquel) 50 mg PO HS [facility] PRN Reason: Protocol Stop: 06/05/17 20:59 Last Admin: 04/17/17 21:11 Dose: 50 mg Quetiapine Fumarate (Seroquel) 12.5 mg PO BID [facility] PRN Reason: Protocol Stop: 06/17/17 08:59 Last Admin: 04/18/17 08:41 Dose: 12.5 mg Trazodone HCl (Desyrel) 50 mg PO HS [facility] PRN Reason: Protocol Stop: 06/14/17 20:59 Last Admin: 04/17/17 21:12 Dose: 50 mg Nutritional Asmnt/Malnutr-PDOC - Dietary Evaluation Malnutrition Findings (Please click <Entered> for more info): Nutritional Asmnt/Malnutrition Start: 04/11/17 16: 46 Text: Status: Complete Freq: Document 04/11/17 16:46 LCHENG (Rec: 04/11/17 17:00 LCDANISHAG [email or web address]) Nutritional Asmnt/Malnutrition Patient General Information Nutritional Screening Moderate Risk Diagnosis agitation, psychosis Pertinent Medical Hx/Surgical Hx HTN, dementia Subjective Information Pt seen in activity room, confused, not responding questions. Spoke to nurse, pt eats well with feeding, consumed 100% of breakfast this morning, no nutrition concer at this time. Per notes , PO intake 50-100% in first 2 days, 100% in recent 2 days. Not approriate to perform physical exam at this time. Pt appeared skinny. Current Diet Order/ Nutrition Support Regular Pertinent Medications lasix, seroquel Pertinent Labs 04/06 Cl 109H, Alb 3.4L Nutritional Hx/Data Height 1.55 m Height (Calculated Centimeters) 154.9 Current Weight (lbs) 54.431 kg Weight (Calculated Kilograms) 54.4 Weight (Calculated Grams) 58795.1 [place] Body Weight 105 % [place] Body Weight 114 Body Mass Index (BMI) 22.6 Weight Status Approriate GI Symptoms GI Symptoms None Last BM 11/12 Difficult in: None Usual diet at home not able to obtain Skin Integrity/Comment: Doron score 18 skin dryness Estimated Nutritional Goals BEE in Kcals: Using Current wt Calories/Kcals/Kg 25-30 Kcals Calculated 8632-5187 Protein: Using Current wt Protein g/k Protein Calculated 55 Fluid: ml 6643-0751 Nutritional Problem No current Nutrition Prob Problem N/A Etiology N/A Signs/Symptoms: N/A Malnutrition Alert Protein-Calorie Malnutrition N/A Is there a minimum of two criteria No selected? Query Text:Check all the applicable criteria. A minimum of two criteria are recommended for diagnosis of either severe or non-severe malnutrition. Intervention/Recommendation Comments 1. continue with current diet as ordered 2. Monitor PO intake, wt weekly, skin, labs 3. F/U as low risk in 7 days 04/18 Expected Outcomes/Goals Expected Outcomes/Goals 1. PO intake continue to > 75% to meet nutritional needs 2. wt stability 3. labs to approach WNL 4. Skin to remain intact
--- NOTE | 2017-04-18 16:05 | Progress Notes ---
DATE: 04/18/2017 PSYCHIATRIC PROGRESS NOTE SUBJECTIVE: Chart reviewed and the patient interviewed. Also discussed the patient's condition with the staff and reviewed records and labs. Also, I tried to call the patient's and I tried to leave the message, but his voice is not activated. According to the message on his cell phone and to the number that he left. The patient is still confused. She is still actively hallucinating and actively talking to herself. She also still has periods of agitation, irritability and banking and yelling and screaming. She also talking to herself or that is not understandable. She needs lots of redirections. She also is still easily agitated and in angry and in irritable mood. Otherwise, the patient is compliant with taking her medications with no side effects of medications. ASSESSMENT: The patient is still psychotic and aggressive. TREATMENT PLAN: We will continue monitoring her behavior and her condition closely. Also, we will increase Seroquel to 25 mg twice a day and 50 mg at bedtime. Also, we will try to contact the patient's to discuss further treatment options and further treatment plans. Estimated length of stay 3-5 days. JOB# [id number]
[2017-04-19] MEDS: Aspirin 81mg Chewable Tab PO SCH (08:56)
--- NOTE | 2017-04-19 09:50 | Internal Medicine Prog Note ---
Internal Medicine Subjective - Subjective Service Date: 04/19/17 Patient is:: awake Per staff patient has:: tolerating meds Internal Medicine Objective - Results Result Diagrams: 04/06/17 14:29 04/06/17 14:29 Recent Labs: Laboratory Last Values WBC 6.0 Th/cmm (4.8-10.8) 04/06/17 14:29 RBC 4.66 Mil/cmm (3.80-5.20) 04/06/17 14:29 Hgb 14.6 gm/dL (12-16) 04/06/17 14:29 Hct 43.7 % (41.0-60) 04/06/17 14:29 MCV 93.8 fl (81-100) 04/06/17 14:29 MCH 31.3 pg (27.0-31.0) H 04/06/17 14:29 MCHC Differential 33.4 pg (28.0-36.0) 04/06/17 14:29 RDW 14.1 % (11.5-20.0) 04/06/17 14:29 Plt Count 147 Th/cmm (150-400) L 04/06/17 14:29 MPV 7.5 fl 04/06/17 14:29 Neutrophils % 65.6 % (40.0-80.0) 04/06/17 14:29 Lymphocytes % 16.7 % (20.0-50.0) L 04/06/17 14: Monocytes % 10.8 % (2.0-10.0) H 04/06/17 14: Eosinophils % 2.4 % (0.0-5.0) 04/06/17 14:29 Basophils % 4.5 % (0.0-2.0) H 04/06/17 14:29 Sodium 143 mEq/L (136-145) 04/06/17 14:29 Potassium 3.7 mEq/L (3.5-5.1) 04/06/17 14:29 Chloride 109 mEq/L (98-107) H 04/06/17 14:29 Carbon Dioxide 27.9 mEq/L (21.0-31.0) 04/06/17 14:29 Anion Gap 9.8 (7.0-16.0) 04/06/17 14:29 BUN 21 mg/dL (7-25) 04/06/17 14:29 Creatinine 1.0 mg/dL (0.6-1.2) 04/06/17 14:29 Est GFR ( Amer) TNP 04/06/17 14:29 Est GFR (Non-Af Amer) TNP 04/06/17 14:29 BUN/Creatinine Ratio 21.0 04/06/17 14:29 Glucose 82 mg/dL (70-105) 04/06/17 14:29 Hemoglobin A1c % 5.6 % (4.0-6.0) 04/06/17 14:29 Calcium 9.0 mg/dL (8.6-10.3) 04/06/17 14:29 Total Bilirubin 1.4 mg/dL (0.3-1.0) H 04/06/17 14:29 AST 33 U/L (13-39) 04/06/17 14:29 ALT 29 U/L (7-52) 04/06/17 14:29 Alkaline Phosphatase 123 U/L (34-104) H 04/06/17 14:29 Total Protein 5.7 gm/dL (6.0-8.3) L 04/06/17 14:29 Albumin 3.4 gm/dL (3.7-5.3) L 04/06/17 14:29 Globulin 2.3 gm/dL 04/06/17 14:29 Albumin/Globulin Ratio 1.5 (1.0-1.8) 04/06/17 14:29 Triglycerides 98 mg/dL (<150) 04/06/17 14:29 Cholesterol 167 mg/dL (<200) 04/06/17 14:29 LDL Cholesterol Direct 123 mg/dL (75-193) 04/06/17 14:29 HDL Cholesterol 40 mg/dL (23-92) 04/06/17 14:29 TSH 2.46 uIU/ml (0.34-5.60) 04/06/17 14:29 Salicylates < 25.0 mg/L (30.0-100.0) L 04/06/17 14:29 Acetaminophen < 10.0 ug/mL (10.0-30.0) L 04/06/17 14:29 Valproic Acid 45.6 ug/mL (50.0-100.0) L 04/11/17 10:40 Ethyl Alcohol < 10 mg/dL (0-10) 04/06/17 14:29 RPR NONREACTIVE (NONREACTIVE) 04/06/17 14:29 - Physical Exam Vitals and I&O: Vital Signs Temp 97.6 F 04/19/17 07:14 Pulse 60 04/19/17 08:56 Resp 17 04/19/17 07:14 BP 133/71 04/19/17 08:56 Pulse Ox 97 04/19/17 07:14 Intake & Output 04/18/17 04/19/17 04/19/17 18:59 06:59 18:59 Intake Total 900 Balance 900 Intake: Oral 900 Other: # Voids 4 # Bowel Movements 0 Active Medications: Current Medications Aspirin (Aspirin Chewable) 81 mg PO DAILY [facility] Stop: 06/06/17 08:59 Last Admin: 04/19/17 08:56 Dose: 81 mg Benztropine Mesylate (Cogentin) 0.5 mg PO BID [facility] Stop: 06/17/17 08:59 Last Admin: 04/19/17 08:57 Dose: 0.5 mg Divalproex Sodium (Depakote Sprinkle) 125 mg PO Q8HR [facility] PRN Reason: Protocol Stop: 06/06/17 08:59 Last Admin: 04/19/17 06:00 Dose: 125 mg Donepezil HCl (Aricept) 5 mg PO HS [facility] Stop: 06/06/17 20:59 Last Admin: 04/18/17 20:56 Dose: 5 mg Furosemide (Lasix) 40 mg PO DAILY [facility] Stop: 06/06/17 08:59 Last Admin: 04/19/17 08:55 Dose: 40 mg Guaifenesin/Dextromethorphan (Robitussin Dm) 10 ml PO Q6HR PRN PRN Reason: Cough Stop: 06/15/17 12:41 Lisinopril (Zestril) 20 mg PO DAILY [facility] Stop: 06/06/17 08:59 Last Admin: 04/19/17 08:55 Dose: 20 mg Lorazepam (Ativan) 0.5 mg PO Q4HR PRN; Protocol PRN Reason: Anxiety Stop: 06/05/17 18:20 Last Admin: 04/18/17 20:56 Dose: 0.5 mg Magnesium Hydroxide (Milk Of Magnesia) 30 ml PO DAILY PRN PRN Reason: Constipation Stop: 06/08/17 18:30 Last Admin: 04/10/17 14:28 Dose: 30 ml Metoprolol Tartrate (Lopressor) 25 mg PO DAILY [facility] Stop: 06/06/17 08:59 Last Admin: 04/19/17 08:56 Dose: 25 mg Quetiapine Fumarate (Seroquel) 50 mg PO HS [facility] PRN Reason: Protocol Stop: 06/05/17 20:59 Last Admin: 04/18/17 20:57 Dose: 50 mg Quetiapine Fumarate (Seroquel) 12.5 mg PO BID [facility] PRN Reason: Protocol Stop: 06/17/17 08:59 Last Admin: 04/19/17 08:56 Dose: 12.5 mg Trazodone HCl (Desyrel) 50 mg PO HS [facility] PRN Reason: Protocol Stop: 06/14/17 20:59 Last Admin: 04/18/17 21:23 Dose: 50 mg General: alert HEENT: NC/AT, PERRLA Neck: Supple Lungs: CTAB Cardiovascular: RRR, Normal S1, Normal S2, without murmur Abdomen: soft, non-tender, non-distended Neurological: no change Internal Medicine Assmt/Plan - Assessment Assessment: psychosis dementia htn - Plan Plan: fall precautions continue current treatment Nutritional Asmnt/Malnutr-PDOC - Dietary Evaluation Malnutrition Findings (Please click <Entered> for more info): Nutritional Asmnt/Malnutrition Start: 04/11/17 16: 46 Text: Status: Complete Freq: Document 04/11/17 16:46 DANISHA (Rec: 04/11/17 17:00 DANISHA [email or web address]) Nutritional Asmnt/Malnutrition Patient General Information Nutritional Screening Moderate Risk Diagnosis agitation, psychosis Pertinent Medical Hx/Surgical Hx HTN, dementia Subjective Information Pt seen in activity room, confused, not responding questions. Spoke to nurse, pt eats well with feeding, consumed 100% of breakfast this morning, no nutrition concer at this time. Per notes , PO intake 50-100% in first 2 days, 100% in recent 2 days. Not approriate to perform physical exam at this time. Pt appeared skinny. Current Diet Order/ Nutrition Support Regular Pertinent Medications lasix, seroquel Pertinent Labs 04/06 Cl 109H, Alb 3.4L Nutritional Hx/Data Height 5 ft 1 in Height (Calculated Centimeters) 154.9 Current Weight (lbs) 120 lb Weight (Calculated Kilograms) 54.4 Weight (Calculated Grams) 05098.1 [place] Body Weight 105 % [place] Body Weight 114 Body Mass Index (BMI) 22.6 Weight Status Approriate GI Symptoms GI Symptoms None Last BM 04/10 Difficult in: None Usual diet at home not able to obtain Skin Integrity/Comment: Doron score 18 skin dryness Estimated Nutritional Goals BEE in Kcals: Using Current wt Calories/Kcals/Kg 25-30 Kcals Calculated 7559-1408 Protein: Using Current wt Protein g/k Protein Calculated 55 Fluid: ml 8701-5273 Nutritional Problem No current Nutrition Prob Problem N/A Etiology N/A Signs/Symptoms: N/A Malnutrition Alert Protein-Calorie Malnutrition N/A Is there a minimum of two criteria No selected? Query Text:Check all the applicable criteria. A minimum of two criteria are recommended for diagnosis of either severe or non-severe malnutrition. Intervention/Recommendation Comments 1. continue with current diet as ordered 2. Monitor PO intake, wt weekly, skin, labs 3. F/U as low risk in 7 days 04/18 Expected Outcomes/Goals Expected Outcomes/Goals 1. PO intake continue to > 75% to meet nutritional needs 2. wt stability 3. labs to approach WNL 4. Skin to remain intact
--- NOTE | 2017-04-19 17:20 | Progress Notes ---
DATE: 04/19/2017 ADDENDUM TREATMENT PLAN: Plan is to continue adjusting her psychotropic medications and also continue to work on her compliance with medications and also discharge plans and placement issue. JOB# [id number]
--- NOTE | 2017-04-19 21:05 | Progress Notes ---
DATE: SUBJECTIVE: Chart reviewed and the patient interviewed. Also discussed the patient's condition with the staff and reviewed records and labs. The patient is still anxious and she is still in an angry and irritable mood. The patient also still is having episodes of yelling and screaming, but seem to be slightly less, and she has been easier to follow directions. The patient also is still paranoid ____. The is compliant with her medications with no side effects ____. The patient is still psychotic and needs a lot of redirection. TREATMENT PLAN: Continue to monitor her behavior and her condition closely. JOB# [id number]
[2017-04-20] MEDS: Aspirin 81mg Chewable Tab PO SCH (09:04)
--- NOTE | 2017-04-20 10:09 | General Progress Note ---
Subjective - Review of Systems Events since last encounter: patient awake alert no distress Objective - Results Result Diagrams: 04/06/17 14:29 04/06/17 14:29 Recent Labs: Laboratory Last Values WBC 6.0 Th/cmm (4.8-10.8) 04/06/17 14:29 RBC 4.66 Mil/cmm (3.80-5.20) 04/06/17 14:29 Hgb 14.6 gm/dL (12-16) 04/06/17 14:29 Hct 43.7 % (41.0-60) 04/06/17 14:29 MCV 93.8 fl (81-100) 04/06/17 14:29 MCH 31.3 pg (27.0-31.0) H 04/06/17 14:29 MCHC Differential 33.4 pg (28.0-36.0) 04/06/17 14:29 RDW 14.1 % (11.5-20.0) 04/06/17 14:29 Plt Count 147 Th/cmm (150-400) L 04/06/17 14:29 MPV 7.5 fl 04/06/17 14:29 Neutrophils % 65.6 % (40.0-80.0) 04/06/17 14: Lymphocytes % 16.7 % (20.0-50.0) L 04/06/17 14: Monocytes % 10.8 % (2.0-10.0) H 04/06/17 14:29 Eosinophils % 2.4 % (0.0-5.0) 04/06/17 14: Basophils % 4.5 % (0.0-2.0) H 04/06/17 14:29 Sodium 143 mEq/L (136-145) 04/06/17 14:29 Potassium 3.7 mEq/L (3.5-5.1) 04/06/17 14:29 Chloride 109 mEq/L (98-107) H 04/06/17 14:29 Carbon Dioxide 27.9 mEq/L (21.0-31.0) 04/06/17 14:29 Anion Gap 9.8 (7.0-16.0) 04/06/17 14:29 BUN 21 mg/dL (7-25) 04/06/17 14:29 Creatinine 1.0 mg/dL (0.6-1.2) 04/06/17 14:29 Est GFR ( Amer) TNP 04/06/17 14:29 Est GFR (Non-Af Amer) TNP 04/06/17 14:29 BUN/Creatinine Ratio 21.0 04/06/17 14:29 Glucose 82 mg/dL (70-105) 04/06/17 14:29 Hemoglobin A1c % 5.6 % (4.0-6.0) 04/06/17 14:29 Calcium 9.0 mg/dL (8.6-10.3) 04/06/17 14:29 Total Bilirubin 1.4 mg/dL (0.3-1.0) H 04/06/17 14:29 AST 33 U/L (13-39) 04/06/17 14:29 ALT 29 U/L (7-52) 04/06/17 14:29 Alkaline Phosphatase 123 U/L (34-104) H 04/06/17 14:29 Total Protein 5.7 gm/dL (6.0-8.3) L 04/06/17 14:29 Albumin 3.4 gm/dL (3.7-5.3) L 04/06/17 14:29 Globulin 2.3 gm/dL 04/06/17 14:29 Albumin/Globulin Ratio 1.5 (1.0-1.8) 04/06/17 14:29 Triglycerides 98 mg/dL (<150) 04/06/17 14:29 Cholesterol 167 mg/dL (<200) 04/06/17 14:29 LDL Cholesterol Direct 123 mg/dL (75-193) 04/06/17 14:29 HDL Cholesterol 40 mg/dL (23-92) 04/06/17 14:29 TSH 2.46 uIU/ml (0.34-5.60) 04/06/17 14:29 Salicylates < 25.0 mg/L (30.0-100.0) L 04/06/17 14:29 Acetaminophen < 10.0 ug/mL (10.0-30.0) L 04/06/17 14:29 Valproic Acid 45.6 ug/mL (50.0-100.0) L 04/11/17 10:40 Ethyl Alcohol < 10 mg/dL (0-10) 04/06/17 14:29 RPR NONREACTIVE (NONREACTIVE) 04/06/17 14:29 - Physical Exam Vitals and I&O: Vital Signs Temp 97.9 F 04/20/17 09:30 Pulse 97 04/20/17 09:30 Resp 18 04/20/17 09:30 BP 96/51 04/20/17 09:30 Pulse Ox 94 04/20/17 09:30 Intake & Output 04/19/17 04/20/17 04/20/17 18:59 06:59 18:59 Intake Total 900 300 Balance 900 300 Intake: Oral 900 300 Other: # Voids 4 1 # Bowel Movements 1 0 Active Medications: Current Medications Aspirin (Aspirin Chewable) 81 mg PO DAILY [facility] Stop: 06/06/17 08:59 Last Admin: 04/20/17 09:04 Dose: 81 mg Benztropine Mesylate (Cogentin) 0.5 mg PO BID [facility] Stop: 06/17/17 08:59 Last Admin: 04/20/17 09:05 Dose: 0.5 mg Divalproex Sodium (Depakote Sprinkle) 125 mg PO Q8HR [facility] PRN Reason: Protocol Stop: 06/06/17 08:59 Last Admin: 04/20/17 06:00 Dose: Not Given Donepezil HCl (Aricept) 5 mg PO HS [facility] Stop: 06/06/17 20:59 Last Admin: 04/19/17 21:00 Dose: Not Given Furosemide (Lasix) 40 mg PO DAILY [facility] Stop: 06/06/17 08:59 Last Admin: 04/20/17 09:06 Dose: Not Given Guaifenesin/Dextromethorphan (Robitussin Dm) 10 ml PO Q6HR PRN PRN Reason: Cough Stop: 06/15/17 12:41 Lisinopril (Zestril) 20 mg PO DAILY [facility] Stop: 06/06/17 08:59 Last Admin: 04/20/17 09:06 Dose: Not Given Lorazepam (Ativan) 0.5 mg PO Q4HR PRN; Protocol PRN Reason: Anxiety Stop: 06/05/17 18:20 Last Admin: 04/20/17 09:06 Dose: 0.5 mg Magnesium Hydroxide (Milk Of Magnesia) 30 ml PO DAILY PRN PRN Reason: Constipation Stop: 06/08/17 18:30 Last Admin: 04/10/17 14:28 Dose: 30 ml Metoprolol Tartrate (Lopressor) 25 mg PO DAILY [facility] Stop: 06/06/17 08:59 Last Admin: 04/20/17 09:05 Dose: Not Given Quetiapine Fumarate (Seroquel) 50 mg PO HS [facility] PRN Reason: Protocol Stop: 06/05/17 20:59 Last Admin: 04/19/17 21:00 Dose: Not Given Quetiapine Fumarate (Seroquel) 12.5 mg PO BID [facility] PRN Reason: Protocol Stop: 06/17/17 08:59 Last Admin: 04/20/17 09:04 Dose: 12.5 mg Trazodone HCl (Desyrel) 50 mg PO HS [facility] PRN Reason: Protocol Stop: 06/14/17 20:59 Last Admin: 04/20/17 06:02 Dose: Not Given Nutritional Asmnt/Malnutr-PDOC - Dietary Evaluation Malnutrition Findings (Please click <Entered> for more info): Nutritional Asmnt/Malnutrition Start: 04/11/17 16: 46 Text: Status: Complete Freq: Document 04/11/17 16:46 LCHENG (Rec: 04/11/17 17:00 LCHENG [email or web address]) Nutritional Asmnt/Malnutrition Patient General Information Nutritional Screening Moderate Risk Diagnosis agitation, psychosis Pertinent Medical Hx/Surgical Hx HTN, dementia Subjective Information Pt seen in activity room, confused, not responding questions. Spoke to nurse, pt eats well with feeding, consumed 100% of breakfast this morning, no nutrition concer at this time. Per notes , PO intake 50-100% in first 2 days, 100% in recent 2 days. Not approriate to perform physical exam at this time. Pt appeared skinny. Current Diet Order/ Nutrition Support Regular Pertinent Medications lasix, seroquel Pertinent Labs 04/06 Cl 109H, Alb 3.4L Nutritional Hx/Data Height 1.55 m Height (Calculated Centimeters) 154.9 Current Weight (lbs) 54.431 kg Weight (Calculated Kilograms) 54.4 Weight (Calculated Grams) 03820.1 [place] Body Weight 105 % [place] Body Weight 114 Body Mass Index (BMI) 22.6 Weight Status Approriate GI Symptoms GI Symptoms None Last BM 11/12 Difficult in: None Usual diet at home not able to obtain Skin Integrity/Comment: Doron score 18 skin dryness Estimated Nutritional Goals BEE in Kcals: Using Current wt Calories/Kcals/Kg 25-30 Kcals Calculated 0704-5834 Protein: Using Current wt Protein g/k Protein Calculated 55 Fluid: ml 5739-4290 Nutritional Problem No current Nutrition Prob Problem N/A Etiology N/A Signs/Symptoms: N/A Malnutrition Alert Protein-Calorie Malnutrition N/A Is there a minimum of two criteria No selected? Query Text:Check all the applicable criteria. A minimum of two criteria are recommended for diagnosis of either severe or non-severe malnutrition. Intervention/Recommendation Comments 1. continue with current diet as ordered 2. Monitor PO intake, wt weekly, skin, labs 3. F/U as low risk in 7 days 04/18 Expected Outcomes/Goals Expected Outcomes/Goals 1. PO intake continue to > 75% to meet nutritional needs 2. wt stability 3. labs to approach WNL 4. Skin to remain intact
--- NOTE | 2017-04-20 20:15 | Discharge Summary ---
DATE OF DISCHARGE: 04/20/2017 AGE: 77 SEX: Female. FINAL DIAGNOSIS/PRIMARY DIAGNOSIS: Unspecified psychosis. SECONDARY DIAGNOSIS: Dementia, moderate to severe, with psychotic features. REASON FOR HOSPITALIZATION: The patient was admitted to the hospital because of increased agitation and aggressive behavior. HOSPITAL COURSE: The patient continued to be easily agitated and in irritable mood. The patient also was not able to follow staff directions and she had episodes of yelling and screaming. She also was confused and needed a lot of redirections. The patient continued to take Depakote and Aricept and Seroquel was added. Seroquel was increased to 25 mg in the morning and 50 mg at bedtime. Gradually, the patient's affect was brighter. The patient was less irritable and less agitated. Placement was an issue and rifle case repairer helped to find placement for the patient. The patient was not suicidal or homicidal, and the patient was discharged from the hospital after stabilizing her condition. Physical exam of the patient showed no major medical problem while in the hospital. Blood workup was basically within normal except Depakote blood level on 04/11/2017 was 45.6, which is slightly below normal average. AFTER DISCHARGE PLANS: The patient discharged from the hospital with plan for followup there. EXPECTED OUTCOME AFTER DISCHARGE: Fair if the patient continued to take psychotropic medications. JOB# [id number]
== END 2017-04-20 14:20 | DRG 885 ==
LOC: ER 14:03 → GERO 15:14
PROVIDERS: ADMIT Psychiatry & Neurology Psychiatry; ATTEND Psychiatry & Neurology Psychiatry
DX: F29 Unspecified psychosis not due to a substance or known physiological condition (principal); F03.91 Unspecified dementia, unspecified severity, with behavioral disturbance; Z66 Do not resuscitate; I10 Essential (primary) hypertension; F31.9 Bipolar disorder, unspecified; Z88.0 Allergy status to penicillin; Z82.49 Family history of ischemic heart disease and other diseases of the circulatory system
CPT/HCPCS: 36415-UA; 71010-TC; 80053-TC; 80061-TC; 80164-TC; 80320-TC; 80329-TC; 83036-90; 84443-TC; 85025-TC; 86592-TC; 87070; 93005; 96374; 96375; G0410; J1200; J1630; J2060; Z7610